=== PATIENT | male | born 1940 | race Caucasian/White ===

== ENCOUNTER 2020-02-23 11:32 | Outpatient (RCR) | payer MEDICARE, SELFPAY ==
[2020-01-26 15:50] LABS: Prothrombin Time 50.8 Seconds (11.1-14.7)
[2020-01-26 16:05] LABS: INR 5.7
[2020-02-11 11:25] LABS: INR 1.1; Prothrombin Time 13.5 Seconds (11.1-14.7)
[2020-02-23 12:22] LABS: Hematocrit 36.5 % (42.0-52.0); Hemoglobin 11.6 g/dL (14.0-18.0); Mean Corpuscular HGB Conc 31.8 g/dl (32-36); Mean Corpuscular Hemoglobin 27.3 pg (26-34); Mean Corpuscular Volume 85.9 fl (80-100); Mean Platelet Volume 9.9 fl (7.4-10.4); Platelet Count Result 244 k/mm3 (150-375); Red Blood Count 4.25 M/mm3 (4.6-6.20); Red Cell Distribution Width 16.5 % (11.5-14.5)
[2020-02-23 12:33] LABS: Add Urine Microscopic? YES; Appearance Urine Clear (Clear); Bilirubin Urine Negative (Negative); Blood Urine Negative (Negative); Color Urine Straw (Yellow); Glucose Urine UA Negative (Negative); Ketones Urine Negative (Negative); Leukocyte Esterase Ur Negative LEU/UL (NEGATIVE); Nitrate Urine Negative (Negative); Protein Urine Negative (Negative); RBC Urine 0-2 /hpf (0-2); Specific Grav Ur 1.011 (1.001-1.035); Squamous Epithelial Cell Urine Occasional /hpf (Few); Urobilinogen Urine Negative mg/dL (<2.0); WBC Urine 0-3 /hpf (0-3)
[2020-02-23 12:39] LABS: Alanine Aminotransferase 17 U/L (4-50); Albumin Level 4.3 g/dL (3.5-5.1); Alkaline Phosphatase 75 U/L (38-126); Anion Gap 11 mmol/L (8-16); Aspartate Amino Transferase 24 U/L (17-59); Bilirubin,Total 0.7 mg/dL (0.2-1.3); Blood Urea Nitrogen 15 mg/dL (9-20); Calcium 9.3 mg/dL (8.4-10.2); Carbon Dioxide 30 mmol/L (22-30); Chloride 101 mmol/L (98-107); Cholesterol 172 mg/dL (0-200); Estimated Glomerular Filt Rate > 60; Glucose 159 mg/dL (75-110); HDL Direct 20 mg/dL; Potassium 4.2 mmol/L (3.4-5.0); Sodium 142 mmol/L (137-145); Triglycerides 220 mg/dL (<150)
[2020-02-23 12:45] LABS: INR 1.7; Prothrombin Time 19.1 Seconds (11.1-14.7)
[2020-02-23 12:49] LABS: LDL Cholesterol Direct 122 mg/dL
[2020-02-23 13:04] LABS: Free T4 Free Thyroxine 0.93 ng/mL (0.78-2.19)
[2020-02-23 13:08] LABS: Prostate Specific Antigen < 0.1 ng/mL (< OR = 4.0)
== END 2020-04-25 23:59 | disposition home or self-care (01) ==
LOC: ANHLAB 11:32
DX: Z51.81 Encounter for therapeutic drug level monitoring (principal); C61 Malignant neoplasm of prostate; I10 Essential (primary) hypertension; E78.5 Hyperlipidemia, unspecified; Z79.01 Long term (current) use of anticoagulants
CPT/HCPCS: 36415; 80053; 80061; 81001; 84153; 84439; 84443; 85027; 85610

== ENCOUNTER 2020-12-29 07:41 | Outpatient (CLI) | payer MEDICARE, SELFPAY ==
--- NOTE | 2021-01-13 12:26 | WPDSLEEPSTUD ---
Sleep Study Date of Study: 12/29/20 Ordering Provider: TAVIA Jones MD Interpreting Physician: Marycarmen Chand MD Sleep Study Type: Polysomnogram Height: 1.75 m Weight: 113.398 kg Body Mass Index: 36.9 Neck Circumference (inches): 16 [place]: 12 Reason for Sleep Study Hypersomnolence * 01/20/2013 - CPAP retitration; BMI 31.1; optimal pressure 16 cm * 07/2015 - split night study; AHI 34.3. Compliance has been 100% with an AHI of 9.1 on September 2018, compliance December 2019 showed AHI 14.1. He might be on APAP 8-18 cm, with high AHI. Sleep History Hakeem Julian is a 80 year old man who has Obstructive sleep apnea and is currently compliant with CPAP. His device is old and needs to be replaced. He has a number of medical problems, and he wakes up frequently at night. He has a history of pulmonary emboli. There is a family history of sleep issues with his middle brother having a diagnosis of sleep apnea. He does not awaken from sleep feeling short of breath. He rarely awakens at night with heartburn, belching or coughing. He occasionally snores and occasionally this is loud enough that others complain about it. He frequently has trouble sleeping with a cold. He does not wake up gasping for breath at night or have breathing problems at night observed by others. He occasionally sweats excessively at night. He does not notice his heart pounding or beating irregularly at night. He frequently falls asleep during the day, occasionally involuntarily, rarely while driving. He does not have loss of muscle tone with strong emotion. He is retired, does not have daytime difficulties due to excessive sleepiness. He does not feel paralyzed on waking or falling asleep. He frequently has vivid dreamlike scenes upon awakening or falling asleep. He does not feel afraid to go to sleep. He constantly has nightmares, constantly remembers his dreams, constantly has racing thoughts. He rarely feels sad or depressed. He does not have anxiety. He occasionally notices parts of his body jerking, occasionally kicks at night, occasionally has crawling aching feelings in the legs and occasionally has leg pain at night. Denies morning jaw pain or grinding teeth during sleep. Rarely is bothered by pain during the day or awakened by pain at night. Occasionally wakes up feeling stiff in the morning with sore or achy muscles, rarely wakes up with pain in neck and spine. Has fatigue, sometimes has panic, sometimes has stomach problems, he has memory problems. Normal bedtime is to 11:30 p.m. or as late as 1:30 a.m., falling asleep within 10 minutes, waking 4-5 times at night to use the bathroom. Sometimes he is able to return to sleep in 5 minute and sometimes it takes hours. He wakes the morning at 8:00 a.m.. His weekend schedule is the same. He estimates getting between 5 and 8 hours of sleep at night. He takes naps in the afternoon. Short nap is not refreshing. He feels better in the evening compared to other times of day. Habits: never smoked, caffeine 2-3 per day, no alcohol. [facility] Past Medical History Medical History (Updated 01/13/21 @ 12:57 by Marycarmen Chand MD) CAD (coronary artery disease) Chronic anticoagulation Diabetes mellitus GERD (gastroesophageal reflux disease) Hyperlipidemia Hypertension Obstructive sleep apnea Prostate cancer Thyroid disease Urinary retention Surgical History Surgical History (Updated 01/13/21 @ 12:57 by Marycarmne Chand MD) History of carpal tunnel release 1998 History of coronary artery bypass graft 2012; 5 vessels History of thyroid surgery 2014 S/P lobectomy of lung left lower lobectomy May 2015 Social History Social History Smoking status: Never smoker Alcohol intake: never Medications Medications: gemfibrozil 600 mg b.i.d. potassium 10 mEq a day Xarelto 20 mg daily Lozol 1.25 mg daily Zetia 10 mg a day Livalo 1 mg a day metformin 500 mg
[2021-01-13 12:35] VITALS: BMI 36.9
== END 2020-12-30 06:43 | disposition home or self-care (01) ==
DX: G47.33 Obstructive sleep apnea (adult) (pediatric) (principal); J30.9 Allergic rhinitis, unspecified; Z68.36 Body mass index [BMI] 36.0-36.9, adult
CPT/HCPCS: 95810

== ENCOUNTER 2024-01-23 10:07 | Outpatient (CLI) | payer MEDICARE, SELFPAY ==
[2024-01-23 11:42] LABS: Basophils Percent Auto 0.6 % (0.2-1.2); Eosinophils Absolute Auto 0.1 K/mm3 (0-0.3); Eosinophils Percent Auto 2.1 % (0-4.4); Hemoglobin 11.6 g/dL (14.0-18.0); Immature Granulocyte Absolute 0.03 K/mm3 (0.00-0.031); Immature Granulocyte Percent A 0.6 % (0-0.5); Lymphocytes Absolute Auto 1.26 K/mm3 (0.9-3.2); Lymphocytes Percent Auto 26.7 % (18.3-44.2); Mean Corpuscular HGB Conc 31.4 g/dl (32-36); Mean Corpuscular Hemoglobin 27.5 pg (26-34); Mean Corpuscular Volume 87.7 fl (80-100); Mean Platelet Volume 9.5 fl (7.4-10.4); Monocytes Absolute Auto 0.4 K/mm3 (0.1-0.6); Monocytes Percent Auto 7.6 % (2.6-8.5); Neutrophils Absolute Auto 2.9 K/mm3 (1.3-6.7); Neutrophils Percent Auto 62.4 % (45.5-73.1); Platelet Count Result 235 k/mm3 (150-375); Red Blood Count 4.22 M/mm3 (4.6-6.20); Red Cell Distribution Width 14.6 % (11.5-14.5); White Blood Count 4.7 K/mm3 (4.5-10.0)
[2024-01-23 11:56] LABS: Alanine Aminotransferase 24 U/L (6-50); Albumin Level 4.7 g/dL (3.5-5.1); Alkaline Phosphatase 61 U/L (38-126); Anion Gap 13 mmol/L (4-12); Aspartate Amino Transferase 35 U/L (17-59); Bilirubin,Total 0.5 mg/dL (0.2-1.3); Blood Urea Nitrogen 15 mg/dL (9-20); Carbon Dioxide 28 mmol/L (22-30); Chloride 98 mmol/L (98-107); Cholesterol 199 mg/dL (0-200); Estimated Glomerular Filt Rate > 60; Glucose 175 mg/dL (65-110); HDL Direct 30 mg/dL; Potassium 3.9 mmol/L (3.4-5.0); Sodium 139 mmol/L (137-145); Triglycerides 152 mg/dL (<150)
[2024-01-23 11:56] LABS: Add Urine Microscopic? YES; Appearance Urine Clear (Clear); Bacteria Urine None Seen /hpf; Bilirubin Urine Negative (Negative); Blood Urine Negative (Negative); Color Urine Yellow (Yellow); Glucose Urine UA Negative (Negative); Ketones Urine Negative (Negative); Leukocyte Esterase Ur 1+ LEU/UL (Negative); Need Manual Microscopic Reviewed; Nitrate Urine Negative (Negative); Non Pathogenic Casts 0-2; Protein Urine Trace mg/dL (Negative); RBC Urine 0-2 /hpf (0-2); Specific Grav Ur 1.012 (1.001-1.035); Squamous Epithelial Cell Urine None Seen /hpf (Few); Urobilinogen Urine 0.2 mg/dL (<2.0); WBC Urine 0-5 /hpf (0-3)
[2024-01-23 11:58] LABS: Creatinine Urine 65.1 mg/dL
[2024-01-23 12:05] LABS: MALB Creatinine Ratio 100.6 mg/g (0-30); Microalbumin Urine Random 65.5 mg/L (0-16.7)
[2024-01-23 12:07] LABS: LDL Cholesterol Direct 143 mg/dL
[2024-01-23 12:11] LABS: Hemoglobin A1C 8.1 % (<5.7)
[2024-01-25 07:53] LABS: Triiodothyronine T3 Free 2.9 pg/mL (2.3-4.2)
== END 2024-01-23 10:08 | disposition home or self-care (01) ==
DX: I10 Essential (primary) hypertension (principal); E11.9 Type 2 diabetes mellitus without complications; E03.9 Hypothyroidism, unspecified
CPT/HCPCS: 36415; 80053; 80061; 81001; 82043; 83036; 84439; 84443; 84481; 85025

== ENCOUNTER 2024-12-01 12:16 | Emergency (ER) | payer MEDICARE, SELFPAY ==
--- NOTE | ~2024-12-01 | XR_ITS ---
EXAM/ PROCEDURE: XR knee RT 3V - 12/01/2024 14:42 CDT HISTORY: 84 years old Male with fall 11/24; red/swollen COMPARISON: None available TECHNIQUE: Three view(s) FINDINGS/ IMPRESSION: There are no fractures or dislocations.Joint space narrowing, subchondral sclerosis, subchondral cyst formation and osteophyte formation, compatible with moderate to severe osteoarthritis. Atherosclerotic calcifications are seen. Reviewed, dictated and finalized at location A.
--- OUTSIDE RECORDS SUMMARY | 2024-12-01 12:19 | XMS_ITS | Data Portability ---
Author Organization [place] - [facility], [facility] - Address [address] [place] [address] Care Team Providers Care Lettuce Trimmer Name Role Phone KAREN PARRA Primary Care Provider Assessment Encounter Date Assessment Date Assessment LastModified by Organization Details LastModified Time 10/20/2024 10/20/2024 Mr. Julian is a 84 year old male with CAD,CABG, HTN, prior hx of PE, DVT, DM, obstructive sleep apnea, dyslipidemia. He comes in today for a general follow up. Patient denies cp, sob, dizziness. Patient has swelling in ble. [email or web address] Not available 10/20/2024 17:48:05 Plan of Treatment Reminders Order Date Submit Date Provider Last Modified By Organization Details Last Modified Time Details Appointments ESTABLISH ED PATIENT 15 2024 10:30A M [facility] Primary [facility] Not available Not available Not available FOLLOW UP 15 2024 02:00P M Calvin Welsh MD Not available Not available Not available Lab None recorded. Referral None recorded. Procedures None recorded. Surgeries None recorded. Imaging None recorded. Medication Orders hydrocodo ne 10 mg-acetam inophen 325 mg tablet 2024 025 [email or web address] [id number], [address] [place], [address], 10/21/2024 19:12:54 pantopraz ole 40 mg tablet,de layed release 2024 025 BAKARI [id number], [address] [place], [address], 10/21/2024 19:12:47 hydrocodo ne 10 mg-acetam inophen [address] [facility] [id number], [address] [place], [address], 09/10/2024 14:39:33 gabapenti n 100 mg capsule 2024 025 [id number] [address] [place], [address], 10/21/2024 18:28:00 warfarin 1 mg tablet 2024 025 [id number] [address] [place], [address], 09/10/2024 14:39:32 warfarin 5 mg tablet 2024 025 [id number] [address] [place], [address], 09/02/2024 19:51:06 Patient TargetsNo targets recorded. Patient Instructions Encounter Date Encounter Id Patient Instructions Last Modified By Organization Details Last Modified Time 09/02/2024 [id number] atrial fibrillation: care instructions Not available 09/02/2024 19:51:01 09/10/2024 [id number] atrial fibrillation: care instructions Not available 09/10/2024 14:27:54 10/01/2024 [id number] atrial fibrillation: care instructions Not available 10/01/2024 12:37:56 10/20/2024 [id number] thoracic aortic aneurysm: care instructions [email or web address] Not available 10/23/2024 10:40:56 Reason for Referral None Reported. Results Created Date Observation Date Name Description Value Unit Range Abnormal Flag Note LastModifiedBy Organization Detail LastModifiedTime 10/02/19 25 09/13/2024 CT, abdom en + pelvi s, w/o contr ast No observ ation record ed. [email or web address] Not Available 2024 14:29:52 10/02/19 25 09/13/2024 XR, chest No observ ation record ed. [email or web address] Not Available 2024 14:32:03 Result Notes None recorded. Problems Name Problem SNOMED Code Status Onset Date Resolution Date Notes Provider Name and Address Organization Details Recorded Time Benign hypertens ion [id number] Rohit Welsh MD [address] [place] [address], [phone] , [facility] [place] 6 14:18:15 Atrial fibrillat ion [id number] Rohit Welsh MD [address] [place] [address], [phone] , [facility] [place] 6 14:18:15 Hyperlipi demia [id number] Rohit Welsh MD [address] [place] [address], [phone] , [facility] [place] 6 14:18:15 Deep vein phlebitis and thromboph lebitis of the leg Rohit Welsh MD [address] [place] [address], [phone] , [facility] [place] 6 19:22:39 Coronary atheroscl erosis [id number] Rohit Welsh MD [address] [place] [address], [address] , [facility] [place] 6 14:18:15 Electroca rdiogram abnormal [id number] Rohit Welsh MD [address] [place] [address], [address] , [facility] [place] 6 19:22:39 Backache 935726775 Active 2019 Backache; Problem descripti on: Back pain conc eptId: [id number] Location : [facility] Last Addressed : 20191130 Secondary : N Practic e ID: 0001 Shoe Salesperson jed: Yes Not Available [facility] 4 10:49:32 Gastroeso phageal reflux disease 270712538 Active 2019 Gastroeso phageal reflux disease; Problem descripti on: GERD conc eptId: [id number] Location : [facility] Last Addressed : 20191130 Secondary : N Practic e ID: 0001 Shoe Salesperson jed: Yes Not Available [facility] 4 10:49:33 Benign prostatic hyperplas ia 107513808 Active 2019 Benign prostatic hyperplas ia; Problem descripti on: BPH - benign prostatic hyperplas ia concep tId: [id number] Location : [facility] Last Addressed : 20191130 Secondary : N Practic e ID: 0001 Shoe Salesperson jed: Yes Not Available [facility] 4 10:49:33 Hypertens elle disorder 92409048 Active 2019 Hypertens elle disorder; Problem descripti on: Hypertens ion adilene ptId: [id number] Location: [facility] Last Addressed : 20191130 Secondary : N Practic e ID: 0001 Shoe Salesperson jed: Yes Not Available [facility] 4 10:49:34 Malignant neoplasm of prostate 929665992 Active 2019 Malignant tumor of prostate; Problem descripti on: Prostate cancer co nceptId: [id number] Location : [facility] Last Addressed : 20191130 Secondary : N Practic e ID: 0001 Shoe Salesperson jed: Yes Not Available [facility] 4 10:49:34 Hypothyro idism 94000872 Active 2019 Hypothyro idism; Problem descripti on: Hypothyro idism con ceptId: [id number] Location: [facility] Last Addressed : 20191130 Secondary : N Practic e ID: 0001 Shoe Salesperson jed: Yes JOSH_Franko [address] [place] [address], [place], [address] , [facility] 5 17:07:24 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 908520463 Active 2019 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; Problem descripti on: Coronary arteriosc lerosis of coronary artery bypass graft con ceptId: [id number] Location : [facility] Last Addressed : 20191130 Secondary : N Practic e ID: 0001 Shoe Salesperson jed: Yes Not Available [facility] 4 10:49:36 Seasonal allergy 052613634 Active 2019 Seasonal allergy; Problem descripti on: Seasonal allergy c onceptId: [id number] Location : [facility] Last Addressed : 20191130 Secondary : N Practic e ID: 0001 Shoe Salesperson jed: Yes Not Available [facility] 4 10:49:36 Melena 9720436 Active 2021 Melena; Problem descripti on: Melena co nceptId: [id number] L ocation: [facility] Pract ice ID: 0001 Shoe Salesperson jed: No Not Available [facility] 4 10:49:34 Diarrhea 44330501 Active 2021 Diarrhea; Problem descripti on: Diarrhea, unspecifi ed type conc eptId: [id number] Location: [facility] Pract ice ID: 0001 Shoe Salesperson jed: No Not Available [facility] 4 10:49:37 Diabetic periphera l neuropath y 282459775 Active 2021 Not Available [facility] 4 10:49:35 Hypokalem ia 92182449 Active 2021 Not Available [facility] 4 10:49:36 Contusion of right wrist 51822665914 990413 Active 2021 Not Available [facility] 4 10:49:32 Contusion of left elbow 97131868583 368255 Active 2021 Not Available [facility] 4 10:49:32 Contusion of rib 120719710 Active 2021 Not Available [facility] 4 10:49:35 Chronic low back pain 574002941 Active 2022 Not Available [facility] 4 10:49:33 Increased frequency of urination 914603042 Active 03/06/ 2023 Not Available [facility] 4 10:49:33 Essential hypertens ion 32141360 Active [address], [address] , [facility] [place] 4 16:04:32 Diabetes mellitus 06651131 Active [address], [address] , [facility] [place] 4 16:05:44 Low back pain 932096363 Active 2023 [facility], [address] , [facility] [place] 4 16:10:34 Cough 12081364 Active 2023 [facility], [address] , [facility] [place] 4 12:39:26 Phimosis 326966689 Active [address], [address] , [facility] [place] 4 12:49:54 Prostate specific antigen above reference range 104664560 Active [address], [address] , [facility] [place] 4 17:05:35 Fatigue 09522609 Active 2024 [facility], [address] , [facility] [place] 5 17:22:58 Right upper quadrant pain 214145181 Active [address], [address] , [facility] [place] 5 18:54:32 Coronary arteriosc lerosis in alutiiq artery 57494744596 07 Active 2024 [facility] [place] 5 17:41:37 Deep venous thrombosi s 369877738 Active 2024 [facility] [place] 5 17:41:37 Aneurysm of thoracic aorta 041985382 Active 2024 [facility] [place] 5 17:41:37 Carotid bruit 647142537 Active 2024 [facility] [place] 5 17:41:37 Mixed hyperlipi demia 163667460 Active 2024 [facility] [place] 5 17:41:37 Cholelith iasis without obstructi on 38979355 Active [address], [address] , [facility] [place] 5 16:32:37 Recurrent bleeding of nose Active [address], [address] , [facility] [place] 5 19:04:33 Functiona l gait abnormali ty 98639469898 103 Active [address], [address] , [facility] [place] 5 19:54:17 Acute abdominal pain 284152807 Active [address], [address] , [facility] [place] 5 12:34:57 Gastroeso phageal reflux disease without esophagit is 747221441 Active [address], [place], [address] , [facility] 14:15:43 Chronic atrial fibrillat ion 806969730 Active [address], [place], [address] , [facility] 5 18:51:45 Problem Notes None recorded. Procedures Surgical History Date Name Laterality Status Provider Name and Address Organization Details Recorded Time 06/13/19 16 Thyroid Surgery completed Rosemarie Jacques [facility] [place] 10/06/2015 17:32:34 08/06/19 13 CABG completed [facility] 08/27/2012 12:51:56 Thyroidectomy completed Not Available [facility] 07/13/2023 10:37:05 Carpal Tunnel Surgery completed Not Available [facility] 07/13/2023 10:37:05 procedure on nose completed Not Available [facility] 07/13/2023 10:37:05 Other completed [facility] 08/27/2012 12:59:53 [facility] 18[facility]:14 Imaging Results None recorded. Procedure Notes None recorded. Medical Equipment None Reported. Allergies Allergen ID Allergen Name Allergen Category Reaction Reaction Severity Criticality Documentation Date Start Date Code Code System Note Provider Name and Address Organization Details Recorded Time iodine medicatio n Not available Not available Not available 07/10/2012 5933 RxNorm Yenni lawson [facility] 3 16:30:04 88853 Product containin g 3-hydroxy -3-methyl glutaryl- coenzyme A reductase inhibitor (product) medicatio n other severe Not available 08/27/2012 12757 009 SNOMED muscl e weakn ess [facility] 3 12:51:56 55345 Substance with sulfonami de structure and antibacte rial mechanism of action (substanc e) medicatio n Not available Not available Not available 07/13/2023 06224 8003 SNOMED [address] [facility] [place] 5 17:02:13 23743 adhesive bandage medicatio n Not available Not available Not available 07/13/2023 18198 [facility]K [facility] [place] 5 17:02:07 Medications Name Sig Start Date Stop Date Status Note LastModified by Organization Details LastModified Time methocarb jamal 500 mg tablet TAKE 1 OR 2 TABLETS BY MOUTH TWICE A DAY NEEDED FOR PAIN 07/15 completed Not Available Not Available Not Available metformin 500 mg tablet take 2 tablet in am and 1 in pm 2023 active Not Available Not Available Not Avai lable potassium chloride ER 10 mEq capsule,e xtended release take 1 capsule by oral route every day with food 11/30 completed Prescrib ed Elsewher e: No Brand Name: ANSELMO Shore CHLORIDE Origina l Start Date: 20191130 Transit ion Into Care: No Modif y By: PAPA Practic e ID: 0001 Enc ounter DateTime : 11/30/19 11:30:00 AM Not Available Not Available Not Available Cardura 8 mg tablet Take 1 tablet every day by oral route. active Not Available Not Available No t Available hydrocodo ne 5 mg-acetam inophen 325 mg tablet TAKE 1 TABLET BY MOUTH EVERY 6 HOURS 07/15 completed Not Available Not Available Not Available warfarin 10 mg tablet TAKE 1 TABLET BY MOUTH EVERY OTHER DAY 2024 active Not Available Not Available Not Avai lable warfarin 7.5 mg tablet Take 1 tablet every day by oral route. 2024 active pt is on Not Available Not Available Not Avai lable lecithin 1,200 mg capsule 10/11 completed Prescrib ed Elsewher e: No Brand Name: LECITHIN Origina l Start Date: 20191130 Transit ion Into Care: No Modif y By: MCCEDRICINS Practic e ID: 0001 Enc ounter DateTime : 11/30/19 11:30:00 AM Not Available Not Available Not Available Lasix 40 mg tablet Take 1 tablet twice a day by oral route. 08/27 completed 08/13 - verbal to [facility] - Not Available Not Available Not Available isosorbid e mononitra te ER 30 mg tablet,ex tended release 24 hr Take 1 tablet every day by oral route. 08/27 completed Not Available Not Available Not Available clobetaso l 0.05 % topical cream APPLY THIN COAT TO AFFECTED AREA TWICE A DAY 2024 active Not Available Not Available Not Avai lable diphenoxy late-atro pine 2.5 mg-0.025 mg tablet take 2 tablet by oral route 4 times every day as needed 11/01 completed Prescrib ed Elsewher e: No Brand Name: DIPHENOX YLATE-AT ROPINE O riginal Start Date: 20211101 Medicat ion Reconcil ed: Yes Doan sition Into Care: No Modif y By: kajal Practice ID: 0001 Enc ounter DateTime : 11/02/19 04:00:00 PM Not Available Not Available Not Available Nexium 40 mg capsule,d elayed release take 1 capsule by oral route every day 10/11 completed Prescrib ed Elsewher e: No Brand Name: NEXIUM O riginal Start Date: 20191130 Transit ion Into Care: No Modif y By: PAPA Shine e ID: 0001 Enc ounter DateTime : 11/30/19 11:30:00 AM Not Available Not Available Not Available Zyrtec 10 mg tablet Take 1 tablet every day by oral route. active Not Available Not Available No t Available metronida zole 500 mg tablet TAKE 1 TABLET BY MOUTH EVERY 12 HOURS FOR 10 DAYS 02/20 completed Not Available Not Available Not Available Plavix 75 mg tablet Take 1 tablet every day by oral route. active verbal - [place], [place] -[place] Not Available Not Available Not Available hydrocodo ne 10 mg-acetam inophen 325 mg tablet Take 1 tablet every 6 hours by oral route as needed. 2024 active Not Available Not Available Not Avai lable Voltaren- XR 100 mg tablet,ex tended release Take 1 tablet every day by oral route. active Not Available Not Available No t Available selenium 200 mcg tablet Take 1 tablet a day. active Not Available Not Available No t Available Nexium 20 mg capsule,d elayed release Take 1 capsule every day by oral route. active Not Available Not Available No t Available FiberCon 625 mg tablet Take 1 tablet as needed 4 times a day active Not Available Not Available No t Available garlic 1,000 mg capsule Take 1 tablet daily active Not Available Not Available No t Available Vitamin D3 10 mcg (400 unit) tablet Take 1 tablet once a day active Not Available Not Available No t Available calcium and magnesium carbonate s 311 mg-232 mg tablet TAKE 2 TABLETS BY ORAL ROUTE NEEDED OR DIRECTED . NOT TO EXCEED 24 TABLETS IN 24HRS active Not Available Not Available No t Available tamsulosi n 0.4 mg capsule take 1 capsule by oral route every day 1/2 hour followin g the same meal each day 2024 active Prescrib ed Elsewher e: No Brand Name: TAMSULOS IN HCL Orig inal Start Date: 20191130 Transit ion Into Care: No Modif y By: PAPA Shine e ID: 0001 Enc ounter DateTime : 11/30/19 11:30:00 AM Not Available Not Available Not Available trazodone 100 mg tablet TAKE 1 TABLET BY MOUTH EVERY DAY AFTER MEALS 02/20 completed Not Available Not Available Not Available gemfibroz il 600 mg tablet take 1 tablet by oral route 2 times every day 30 minutes before morning and evening meal 2023 active Not Available Not Available Not Avai lable Lasix 20 mg tablet take 1 tablet by oral route every day 10/11 completed Prescrib ed Elsewher e: No Brand Name: LASIX Or iginal Start Date: 20191130 Transit ion Into Care: No Modif y By: PAPA Practic e ID: 0001 Enc ounter DateTime : 11/30/19 11:30:00 AM Not Available Not Available Not Available pantopraz ole 40 mg tablet,de layed release Take 1 tablet twice a day by oral route. 2024 active Not Available Not Available Not Avai lable warfarin 5 mg tablet take 1 tablet daily 2024 active Not Available Not Available Not Avai lable indapamid e 1.25 mg tablet take 1 tablet by oral route every day in the morning 2023 active Not Available Not Available Not Avai lable niacin 100 mg tablet take 1 tablet by oral route 2 times every day with meals 10/11 completed Prescrib ed Rodrigue e: No Brand Name: NIACIN Diana mejia Start Date: 20191130 Transit ion Into Care: No Modif y By: PAPA Shine e ID: 0001 Enc ourhonda DateTime : 11/30/19 11:30:00 AM Not Available Not Available Not Available Synthroid 50 mcg tablet TAKE 1 TABLET DAILY 07/15 completed Not Available Not Available Not Available gabapenti n 300 mg capsule Take 1 capsule 3 times a day by oral route. 11/01 completed Not Available Not Available Not Available diclofena c sodium 75 mg tablet,de layed release Take 1 tablet twice a day by oral route. active Not Available Not Available No t Available felodipin e ER 10 mg tablet,ex tended release 24 hr Take 1 tablet every day by oral route. 08/27 completed Not Available Not Available Not Available monteluka st 10 mg tablet take 1 tablet by oral route every day in the evening active Not Available Not Available No t Available magnesium 250 mg tablet Take 1 tablet with a meal once a day active Not Available Not Available No t Available gabapenti n 100 mg capsule Take 1 capsule 3 times a day by oral route. 2024 active pt is not taking Not Available Not Available Not Available nystatin 100,000 unit/gram topical powder APPLY TO THE AFFECTED AREA(S) BY TOPICAL ROUTE 2 TIMES PER DAY 2024 active Not Available Not Available Not Avai lable dexametha sone sodium phosphate 4 mg/mL injection solution Inject 2 mL twice a day by intramus cular route. 08/06 completed Not Available Not Available Not Available warfarin 1 mg tablet TAKE ONE TAB PO DAILY 2024 active Not Available Not Available Not Avai lable fluticaso ne propionat e 50 mcg/actua tion nasal spray,nurys pension [place] 1 spray every day by intranas al route. active Not Available Not Available No t Available finasteri de 5 mg tablet Take 1 tablet every day by oral route. 09/17 completed Not Available Not Available Not Available Adult Low Dose Aspirin 81 mg tablet,de layed release Take 1 tablet every day by oral route. active Not Available Not Available No t Available Zetia 10 mg tablet take 1 tablet by oral route every day 2023 active Not Available Not Available Not Avai lable Avodart 0.5 mg capsule Take 1 capsule every day by oral route. active Not Available Not Available No t Available Klor-Con M20 mEq tablet,ex tended release Take 1 tablet every day by oral route. 2023 active Not Available Not Available Not Avai lable potassium chloride ER 10 mEq tablet,ex tended release(p art/cryst ) Take 1 tablet every day by oral route. 10/05 completed Not Available Not Available Not Available metoprolo l tartrate 25 mg tablet TAKE 1 TABLET TWICE A DAY 2024 active Not Available Not Available Not Avai lable Cymbalta 30 mg capsule,d elayed release Take 1 capsule every day by oral route. active Not Available Not Available No t Available prednison e 60 mg QTY:2 08/27 completed TAKE 1 TABLET EVERY DAY BY ORAL ROUTE Not Available Not Available Not Available [place] 3 Fish Oil 1000mg PO QD active Not Available Not Available No t Available Lupron Depot (4 month) 04/01 completed Not Available Not Available Not Available Niacin Flush Free 500 mg Capsule. Take 1 capsule a day 08/27 completed Not Available Not Available Not Available red yeast rice 600 mg capsule Take 1 Capsule once daily active Not Available Not Available No t Available Lovaza 1 gram capsule Take 2 capsules twice a day by oral route. active Not Available Not Available No t Available Biotin Plus-Calc ium and Vit D3 1000 mg Take 1 tablet daily active Not Available Not Available No t Available aspirin 81 mg effervesc ent tablet Take 1 tablet every day by oral route. 10/12 completed Not Available Not Available Not Available Toviaz 4 mg tablet,ex tended release take 1 tablet by oral route every day 10/11 completed Prescrib ed Elsewher e: No Brand Name: TOVIAZ Diana mejia Start Date: 20191130 Transit ion Into Care: No Modif y By: PAPA Shine e ID: 0001 Enc [email or web address] DateTime : 11/30/19 11:30:00 AM Not Available Not Available Not Available Toviaz 8 mg tablet,ex tended release Take 1 tablet every day by oral route. 03/31 completed Not Available Not Available Not Available Zyrtec 10 mg capsule Take 1 capsule every day by oral route. 03/20 completed Not Available Not Available Not Available levothyro xine 25 mcg capsule Take 1 capsule every day by oral route. 04/01 completed Not Available Not Available Not Available levothyro xine 50 mcg capsule Take 1 capsule( s) every day by oral route. 2024 active Not Available Not Available Not Avai lable Livalo 1 mg tablet Take 1 tablet every day by oral route. 09/17 completed Not Available Not Available Not Available Livalo 2 mg tablet Take 1 tablet every day by oral route. 10/13 completed unsure of Not Available Not Available Not Available Xarelto unsure of dose 10/05 completed Not Available Not Available Not Available Xarelto 20 mg tablet take 1 tablet by oral route every day with the evening meal 10/20 completed Not Available Not Available Not Available Myrbetriq 25 mg tablet,ex tended release Take 1 tablet every day by oral route. 04/18 completed Not Available Not Available Not Available Myrbetriq 50 mg tablet,ex tended release Take 1 tablet every day by oral route. 03/31 completed Not Available Not Available Not Available Eliquis 5 mg tablet Take 1 tablet twice a day by oral route. 10/12 completed unsure of Not Available Not Available Not Available potassium chloride ER 20 mEq tablet,ex tended release one tab po daily 2024 active Not Available Not Available Not Avai lable Imodium A-D 2 mg capsule take 2 capsule by oral route after 1st loose stool, followed by 1 capsule after each subseque nt loose stool not to exceed 16 mg/day 2021 active Not Available Not Available Not Avai lable Xhance 93 mcg/actua tion breath activated aerosol [place] 1 spray twice a day by intranas al route. 02/09 completed Not Available Not Available Not Available Nucala 100 mg/mL subcutane ous syringe Inject 1 mL every 4 weeks by subcutan eous route. active Not Available Not Available No t Available aspirin 81 mg capsule Take 1 capsule every day by oral route at bedtime. 2021 active Not Available Not Available Not Avai lable Vitals Date Recorded Body height Respiratory rate Body mass index (BMI) Body weight Heart rate Oxygen saturation Oxygen saturation in Arterial blood by Pulse oximetry Systolic And Diastolic Provider Name and Address Organization Details Last Updated DateTime 5 175.26 cm 16 /min 36.2 kg/m2 169150. 13 g 76 /min 98 % 98 % 130/76 mm[Hg] Christelle Hardy [facility] [place] 5 19:34:50 Date Recorded Body height Respiratory rate Body mass index (BMI) Body weight Oxygen saturation Oxygen saturation in Arterial blood by Pulse oximetry Heart rate Systolic And Diastolic Provider Name and Address Organization Details Last Updated DateTime 5 175.26 cm 16 /min 36.2 kg/m2 282718. 13 g 98 % 98 % 63 /min 122/74 mm[Hg] Christelle Hardy [facility] [place] 5 14:20:10 Date Recorded Body height Respiratory rate Body mass index (BMI) Body weight Heart rate Oxygen saturation Oxygen saturation in Arterial blood by Pulse oximetry Systolic And Diastolic Provider Name and Address Organization Details Last Updated DateTime 5 175.26 cm 16 /min 35.4 kg/m2 950260. 17 g 68 /min 98 % 98 % 132/78 mm[Hg] Christelle Hardy [facility] [place] 5 12:06:53 Date Recorded Body height Respiratory rate Body mass index (BMI) Body weight Oxygen saturation Oxygen saturation in Arterial blood by Pulse oximetry Heart rate Systolic And Diastolic Provider Name and Address Organization Details Last Updated DateTime 5 175.26 cm 16 /min 35.1 kg/m2 680766. 55 g 96 % 96 % 70 /min 126/72 mm[Hg] Kristin Berry [facility] [place] 5 17:45:30 Date Recorded Body height Respiratory rate Heart rate Oxygen saturation Oxygen saturation in Arterial blood by Pulse oximetry Body mass index (BMI) Body weight Systolic And Diastolic Provider Name and Address Organization Details Last Updated DateTime 5 175.26 cm 16 /min 74 /min 96 % 96 % 35.3 kg/m2 199319. 58 g 126/76 mm[Hg] Chasity Aldana [facility] [place] 18:30:47 Social History Question Answer Notes LastModified by Organizat ion Details LastModified Time Tobacco Smoking Status Never Smoker Not Available [employer] 03/08/2020 03:20:52 Do You Have An Advance Directive? Yes [id number] Information not available 03/08/2020 Are You Blind Or Do You Have Difficulty Seeing? No [id number] Information not available 03/08/2020 What Is Your Level Of Caffeine Consumption? Occasional [id number] Information not available 07/13/2023 Are You Deaf Or Do You Have Serious Difficulty Hearing? No [id number] Information not available 03/08/2020 Diabetes No Information no t available 08/27/2012 What Type Of Diet Are You Following? REGULAR [id number] Information not available 03/08/2020 Which Illicit Or Recreational Drugs Have You Used? Denies. [id number] Information not available 03/08/2020 Family History Of Heart Disease? Yes Information not available 08/27/2012 High Blood Pressure Yes Information not available 08/27/2012 High Cholesterol Yes Informat ion not available 08/27/2012 Do You Have Difficulty Bathing Yourself Without Assistance? No [email or web address] Information not available 05/18/2024 Are You Able To Eat And Drink Without Assistance? Yes [email or web address] Information not available 05/18/2024 Is It Difficult To Get Yourself Up And Out Of Bed Or A Chair? No [email or web address] Information not available 05/18/2024 Do You Feel Unsteady When Standing Or Walking? No [email or web address] Information not available 08/17/2024 Are You Worried About Falling? No Information not available 08/17/2024 Have You Had Any Falls In The Past Year? No [email or web address] Information not available 08/17/2024 Where You Injured? No [email or web address] Information not available 08/17/2024 Marital Status Informatio n not available 08/27/2012 Do You Have A Medical Power Of Information Support Project Manager? Yes [email or web address] Information not available 05/18/2024 What Was The Date Of Your Most Recent Tobacco Screening? 08/17/2024 [email or web address] Information not available 08/17/2024 Obese Yes Information no t available 08/27/2012 Overweight Yes Information no t available 08/27/2012 What Is Your Relationship Status? [id number] Information not available 07/13/2023 Do You Use Your Seat Belt Or Car Seat Routinely? Yes [id number] Information not available 07/13/2023 How Much Tobacco Do You Smoke? No [id number] Information not available 03/08/2020 General Stress Level Medium Information not available 08/27/2012 Do You Use Sunscreen Routinely? Yes [email or web address] Information not available 05/18/2024 Has Tobacco Cessation Counseling Been Provided? No [email or web address] Information not available 03/26/2024 Have You Recently Traveled Abroad? No [id number] Information not available 07/13/2023 Do You Have Difficulty Walking Or Climbing Stairs? No [id number] Information not available 03/08/2020 Sex: Unknown Functional Status Question Answer Note LastModified by Organizat ion Details LastModified Time Do you or have you ever used any other forms of tobacco or nicotine? No [email or web address] Information not available 03/26/2024 What is your level of alcohol consumption? None [id number] Information not available 03/08/2020 Do you have transportation difficulties? No Information not available 05/18/2024 Are you able to walk? YESWOREST [id number] Information not available 07/13/2023 Do you have difficulty doing errands alone? No [id number] Information not available 03/08/2020 Are you able to care for yourself? Yes [id number] Information not available 07/13/2023 What is your occupation? Retired [id number] Information not available 03/08/2020 Do you have difficulty dressing or bathing? No [id number] Information not available 03/08/2020 What is your exercise level? Moderate 4 walks daily, physical therapy exercises [id number] Information not available 03/08/2020 Mental Status Question Answer Note LastModified by Organizat ion Details LastModified Time Do you feel stressed (tense, restless, nervous, or anxious, or unable to sleep at night)? [id number] Information not available 07/13/2023 Do you have difficulty concentrating, remembering or making decisions? Yes [id number] Information no t available 03/08/2020 Family History Relationship Description Onset Age of this Age Resolved Age Notes LastModified by Organization Details LastModified Time Father Myocardial infarction 58 [email or web address] Not available 10/06 19:22:51 Medical History Condition Response Coronary Artery Disease Y Hyperthyroidism N CVA/TIA (Stroke) N Neurologic Disorder (Parkinson's, tremor , MS) N Hypothyroidism Y COPD N Depression/Anxiety N Pacemaker N Peripheral Arterial Disease N Anemia N Constipation N Genitourinary Disease N Heart Attack ([place]) N Gastrointestinal Disease N Deep Vein Thrombosis Y Diabetes Y Cardiomyopathy N Obesity N Arthritis Y Antiplatelet/Anticoagulant Therapy N Congestive Heart Failure (CHF) N Hyperlipidemia Y Cancer Y Asthma N Aortic Aneurysm N Hepatitis N Liver Disease N Valvular Abnormalities N Arrhythmia N Hypertension Y Kidney Disease N Hematologic Disease N Immunizations Vaccine Type Date Status Note Provider Nam e and Address Organization Details Recorded Time Influenza, adjuvanted, quadrivalent, PF 3 completed Not Available [facility] 07/13/2023 10:54:37 Tdap 2 completed Not Available [facility] 07/13/2023 10:54:38 zoster recombinant 2 completed Not Available [facility] 07/13/2023 10:54:38 Past Encounters Encounter ID Performer Location Encounter Start Date Encounter Closed Date Diagnosis/Indication Diagnosis SNOMED-CT Code Diagnosis ICD10 Code Diagnosis Note [id number] Calvin Welsh MD OFFICE - [place] [address] [facility] [address] 08/27/2012 12:44:04 08/27/2012 16:23:15 [id number] Calvin Welsh MD [place] [place] [address] [facility] [address] 03/09/2013 13:08:00 03/09/2013 17:38:06 [id number] Calvin Welsh MD OFFICE - [place] [facility]) [address] 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 He is having a procedure on 03/07, he will be stopping Coumadin 03/03. Hyperlipidemia 99216867 continue Statin. Encouraged physical activity and diet. Coronary atherosclerosis 162291654 stable, doing well. Encouraged diet and exercise. Reviewed [place] EKG showed [place] [id number] MD ROMIE Shaw - [place] [facility]) [address] [place] [address] 08/12/2014 13:51:50 08/12/2014 19:56:37 Benign hypertension 31315864 BP is good controlled on current medication , no changes in meds Atrial fibrillation 33049947 On anticoagul ation for stroke prevention . Will give standing order for INR. Hyperlipidemia 67118181 continue Statin. Encouraged physical activity and diet. Coronary atherosclerosis 987304239 stable, continue medical therapy. Encouraged diet and exercise. [id number] MD ROMIE Shaw - [place] [facility]) [address] [place] [address] 03/10/2015 12:39:46 03/12/2015 16:36:20 Benign hypertension 73915457 I10 BP is good controlled on current medication , no changes in meds Atrial fibrillation 4943 6004 I48.0 stable, On anticoagul ation for stroke prevention . Hyperlipidemia 07006238 E78.2 continue Statin. Encouraged physical activity and diet. Get lipid panel, it was done recently. Coronary atherosclerosis 421735274 I25.10 stable, continue medical therapy. Encouraged diet and exercise. doing good cardiac robbins. Continue medication for now. [id number] Calvin Welsh MD OFFICE - [place] ([facility]) [address] [place] [address] 10/06/2015 16:58:05 10/13/2015 14:18:28 Benign hypertension 13588661 I10 BP is good controlled on current medication , no changes in meds Atrial fibrillation 4943 6004 I48.0 stable, On anticoagul ation for stroke prevention . Rate controlled . Hyperlipidemia 07333793 E78.2 continue Statin. Encouraged physical activity and diet. Coronary atherosclerosis 743766757 I25.10 stable, continue medical therapy. Encouraged diet and exercise. doing good cardiac robbins. No symptoms for now. [id number] Calvin Welsh MD OFFICE - [place] ([facility]) [address] [place] [address] 04/19/2016 12:04:25 04/20/2016 00:21:20 Benign hypertension 23093404 I10 BP is good controlled on current medication , no changes in meds Coronary atherosclerosis 372788560 I25.10 stable, continue medical therapy. Encouraged diet and exercise. Hyperlipidemia 01654895 E78.2 continue Statin. Encouraged physical activity and diet. Atrial fibrillation 4943 6004 I48.0 stable, On anticoagul ation for stroke prevention . Rate controlled . Discussed option of Xarelto or Pradaxa, wants to think about it. [id number] Calvin Welsh MD OFFICE - [place] ([facility]) [address] [place] [address] 11/01/2016 16:21:45 11/02/2016 18:03:26 Benign hypertension 51565354 I10 BP is good controlled on current medication , no changes in meds Coronary atherosclerosis 328859157 I25.10 stable, continue medical therapy. Encouraged diet and exercise. Atrial fibrillation 4943 6004 I48.0 rate controlled , on anticoagua ltion for stroke prevention Hyperlipidemia 07580732 E78.2 continue Statin. Encouraged physical activity and diet. [id number] Calvin Welsh MD OFFICE - [place] ([facility]) [address] [place] [address] 04/18/2017 16:45:48 04/19/2017 19:59:54 Benign hypertension 42234786 I10 BP is good controlled on current medication , no changes in meds. Pt doing good cardiac robbins. No change in medication . Coronary atherosclerosis 931752944 I25.10 stable, continue medical therapy. Encouraged diet and exercise. Atrial fibrillation 4943 6004 I48.91 rate controlled , on anticoagua ltion for stroke prevention Hyperlipidemia 06433012 E78.2 continue Statin. Encouraged physical activity and diet. [id number] Calvin Welsh MD OFFICE - [place] [address] [facility] [address] [address] [place] [address] 09/17/2017 18:00:55 09/21/2017 23:31:11 Benign hypertension 39572089 I10 BP is good controlled on current medication , no changes in meds. Doing good cardiac robbins. Atrial fibrillation 4943 6004 I48.91 reviewed the ekg, showed SR. Coronary atherosclerosis 362649945 I25.10 stable, continue medical therapy. Encouraged diet and exercise. Hyperlipidemia 12154565 E78.2 continue Statin. Encouraged physical activity and diet. [id number] Calvin Welsh MD OFFICE - [place] ([facility]) [address] [address] 03/20/2018 16:13:00 03/21/2018 22:49:31 Paroxysmal atrial fibrillation 688415846 I48.0 rate controlled , on anticoagua ltion for stroke prevention . Coronary arteriosclerosis in alutiiq artery 6311086882 107 I25.10 stable, continue medical therapy Mixed hyperlipidemia 267 684082 E78.2 continue medical therapy Benign hypertension 1072 5009 I10 BP is good controlled on current medication , no changes in meds. [id number] Calvin Welsh MD OFFICE - [place] [address] [facility] [address] [facility] [address] [place] [address] 09/17/2018 16:03:46 09/18/2018 23:09:31 Coronary arteriosclerosis in alutiiq artery 8646148954 107 I25.10 stable, reviewed the ekg, showed SR. Pt doing good, very active, lost 5 pounds Paroxysmal atrial fibrillation 185628490 I48.0 reviewed the ekg, showed SR. On anticoaugl ation for stroke prevention . Mixed hyperlipidemia 267 245456 E78.2 continue medical therapy Benign hypertension 1072 5009 I10 BP is good controlled on current medication , no changes in meds. [id number] Calvin Welsh MD OFFICE - [place] [address] [address] [place] [address] 04/01/2019 17:55:42 04/03/2019 17:54:32 Paroxysmal atrial fibrillation 926051821 I48.0 On anticoagul ation for stroke prevention . Rate controlled Coronary arteriosclerosis in alutiiq artery 5845764365 107 I25.10 stable, offers no new complaints , encourage more excersie. Benign hypertension 1072 5009 I10 BP is good controlled , no changes in medication s Mixed hyperlipidemia 267 492521 E78.2 continue medical therapy, encourgae healthy diet [id number] Calvin Welsh MD OFFICE - [place] ([facility]) [address] [place] [address] 10/08/2019 15:33:54 10/09/2019 18:31:48 Atrial fibrillation 14094614 I48.0 Rate controlled , on full medical therapy. Coronary arteriosclerosis in alutiiq artery 2898045435 107 I25.10 stable, continue medical therapy Benign hypertension 1072 5009 I10 BP is good controlled , no changes in medication s Mixed hyperlipidemia 267 712998 E78.2 continue medical therapy, encourage healthy diet, exercise and diet as well. [id number] Calvin Welsh MD OFFICE - [place] ([facility]) [address] [place] [address] 03/31/2020 15:01:49 09/19/2020 03:48:26 Atrial fibrillation 21716322 I48.0 currently on anticoagul ation for stroke prevention rate controlled heart regular today per auscultati on Coronary arteriosclerosis in alutiiq artery 4758894416 107 I25.10 patient offers no cardiac complaints continue current therapy Benign hypertension 1072 5009 I10 no changes in medication blood pressure well controlled Mixed hyperlipidemia 267 489087 E78.2 stable encourage weight loss [id number] MD ROMIE URBINA - [place] [facility]) [address] [place] [address] 10/12/2020 13:40:09 10/19/2020 13:03:49 Atrial fibrillation 42052716 I48.0 Asymptomat ic. Regular rhythm on exam - On xarelto. Tolerating well. No bleeding noted - On metoprolol for rate control Coronary arteriosclerosis in alutiiq artery 4903556189 107 I25.10 s/p CABG Asymptomat ic I reviewed EKG which shows NSR HR 64 - Continue medical therapy - Obtain outside lipids and LFTs - Obtain outside TTE. [facility] his cardiologi st Dr. Welsh in 2 months Benign hypertension 1072 5009 I10 Controlled -Continue medical therapy Mixed hyperlipidemia 267 130811 E78.2 - Obtain outside Lipids and LFTs. He states that his primary care provider recently started him on livalo and he had recent lipid panel and LFTs done. Deep venou s thrombosis 735626718 I82.409 Hx of DVT in lower extremity. Asymptomat ic. - On xarelto. No recurrence s since. [id number] Calvin Welsh MD OFFICE - [place] ([facility]) [address] [place] [address] 11/24/2020 17:02:12 11/29/2020 12:06:47 Atrial fibrillation 34692747 I48.0 rate is controlled no changes in medication s, currently on anticoagul ation for stroke prevention Coronary arteriosclerosis in alutiiq artery 8702818143 107 I25.10 stable patient offers no cardiac complaints will continue current medical therapy EKG reviewed showed mild AR and mild MR EF 57% repeat echo in 1 year Benign hypertension 1072 5009 I10 no changes in her medication blood pressure is well controlled Mixed hyperlipidemia 267 769360 E78.2 labs reviewed continue current medical therapy Deep venou s thrombosis 702552626 I82.409 asymptomat ic continue anticoagul ation Carotid bruit 021614366 R09.89 slight carotid bruit heard to the left carotid artery will do ultrasound prior to next visit for further evaluation [id number] Calvin Welsh MD OFFICE - [place] ([facility]) [address] [place] [address] 04/27/2021 18:04:21 05/23/2021 16:01:19 Atrial fibrillation 83458313 I48.0 rate is controlled no changes in medication s, currently on anticoagul ation for stroke prevention Coronary arteriosclerosis in alutiiq artery 6383522986 107 I25.10 stable patient offers no cardiac complaints will continue current medical therapy EKG reviewed showed mild AR and mild MR EF 57% repeat echo in 1 year Benign hypertension 1072 5009 I10 no changes in her medication blood pressure is well controlled Mixed hyperlipidemia 267 367509 E78.2 labs reviewed continue current medical therapy Deep venou s thrombosis 935995185 I82.409 asymptomat ic continue anticoagul ation Carotid bruit 164595865 R09.89 ultrasound was reviewed mild disease at the same time there was the nodule on the thyroid referred for ENT evaluation [id number] Calvin Welsh MD OFFICE - [place] ([facility]) [address] [place] [address] 10/05/2021 16:33:49 10/16/2021 16:35:28 Atrial fibrillation 08589883 I48.0 continue anticoagul ation for stroke prevention rate is controlled Coronary arteriosclerosis in alutiiq artery 5506359343 107 I25.10 stable patient denies any symptoms at today's visit we will continue current medical therapy Benign hypertension 1072 5009 I10 no changes in her medication blood pressure is well controlled Carotid bruit 733957447 R09.89 minimal stenosis was noted repeat ultrasound 1 year Mixed hyperlipidemia 267 962486 E78.2 currently on statin Deep venou s thrombosis 858395122 I82.409 continues to be on anticoagul ation Aneurysm o f thoracic aorta 726144111 I71.2 4.2 cm on last echocardio gram repeat prior to next visit for evaluation [id number] Calvin Welsh MD OFFICE - [place] ([facility]) [address] [place] [address] 03/22/2022 14:34:44 04/02/2022 15:55:19 Atrial fibrillation 39060938 I48.0 The patients' [id number] score is 6. Continue the patient on metoprolol for rate control and xeralto for stroke prevention . Coronary arteriosclerosis in alutiiq artery 1477614364 107 I25.10 The patient denies taking aspirin. Will add aspirins. The patient reports that he feels really good and denies symptoms. Aneurysm o f thoracic aorta 866593427 4.2 cm on last echocardio gram repeat prior to next visit for evaluation Benign hypertension 1072 5009 I10 Today's blood pressure is 124/64. He states that his blood pressure is well controlled at home. Will continue current medication s. Carotid bruit 859025887 R09.89 minimal stenosis was noted on previous carotid US. No further testing required unless the patient reports symptoms. Mixed hyperlipidemia 267 913199 E78.2 currently on statin. Advised the patient to follow healthy diet and exercise regurarly. Deep venou s thrombosis 056042850 I82.409 The patient reports no symptoms. We'll continue the patient on current medication s. [id number] HAKEEM MCHUGH NP OFFICE - [place] ([facility]) [address] [place] [address] 09/17/2022 14:38:43 09/21/2022 17:55:06 Atrial fibrillation 69792641 I48.0 rate is controlled continue anticoagul ation for stroke prevention Coronary arteriosclerosis in alutiiq artery 5375407128 107 I25.10 stable continue current medical therapy Aneurysm o f thoracic aorta 532484693 I71.20 repeat echo prior to next visit for evaluation Benign hypertension 1072 5009 I10 blood pressure well controlled no change in current medical therapy Carotid bruit 544416388 R09.89 order follow-up ultrasound next visit for evaluation Mixed hyperlipidemia 267 921835 E78.2 continue statin encouraged weight loss Deep venou s thrombosis 405313934 I82.409 no further symptoms reported by patient he does have swelling to lower extremitie s this is not new he does wear compressio n socks daily [id number] HAKEEM MCHUGH NP OFFICE - [place] ([facility]) [address] [place] [address] 03/18/2023 11:57:43 03/18/2023 12:25:25 Atrial fibrillation 13229845 I48.0 Continue anticoagul ation for stroke prevention . Rate is controlled today's visit patient offers no cardiac complaints . Coronary arteriosclerosis in alutiiq artery 9648450002 107 I25.10 Continue current medical therapy patient offers no cardiac complaints at today's visit. Aneurysm o f thoracic aorta 344258501 I71.20 4.3 cm on recent echocardio gram repeat in 1 year for re-evaluat ion. Benign hypertension 1072 5009 I10 No changes in medical therapy blood pressure controlled . Carotid bruit 861863620 R09.89 Will order follow-up ultrasound prior to next visit for re-evaluat ion. Mixed hyperlipidemia 267 439705 E78.2 Stable, continue statin. Deep venou s thrombosis 619144823 I82.409 Advised to continue wearing compressio n socks. [id number] [facility] [address] [place] [address] 05/30/2023 15:17:56 05/30/2023 16:16:50 Essential hypertension 33625423 I10 cont to monitor bp at homelow salt and caffeineco nt medication labs in 3-6 mos Hyperlipidemia 01617770 E78.5 discussed diet and exerciseco nt current medication labs in 3-6 mos Diabetes mellitus 756820 09 E11.9 A1c 7.1 [id number] [facility] [address] [place] [address] 02/20/2022 00:00:00 02/20/2022 14:09:27 [id number] [facility] [address] [place] [address] 04/24/2022 00:00:00 04/24/2022 15:53:40 [id number] [facility] [address] [place] [address] 05/29/2022 00:00:00 05/29/2022 15:33:30 [id number] JONATHON HARRINGTON [facility] [address] [place] [address] 07/16/2022 00:00:00 07/16/2022 13:19:48 [id number] [facility] [address] [place] [address] 08/13/2022 00:00:00 08/13/2022 18:44:28 [id number] [facility] [address] [place] [address] 11/01/2022 00:00:00 11/01/2022 17:20:06 [id number] [facility] [address] [place] [address] 02/20/2023 00:00:00 02/20/2023 15:09:11 [id number] [facility] [address] [place] [address] 07/16/2023 12:12:56 07/16/2023 13:12:52 Cough 05944900 R05.9 DDx allergic rhinitis.w ill do cxr if worsencont otc medication swill give decadron 8mg im now. Phimosis 443195016 N47.1 will use clobetasol cream bidkeep area clean and dry. [id number] [facility] [address] [place] [address] 08/07/2023 16:30:02 08/07/2023 17:44:27 Benign hypertension 53227471 I10 cont to monitor bp at homelow salt and caffeineco nt medication labs in 3-6 mos Hyperlipidemia 10376792 E78.5 discussed diet and exerciseco nt current medication labs in 3-6 mos Hypokalemia 50272876 E87 .6 medication refilled. Diabetes mellitus 939105 09 E11.9 A1c 7.1 Hypothyroidism 65680522 E03.9 will do labs. Low back pain 818459375 M54.50 refill norco 10/325mg qid #20 Benign pro static hyperplasia 573485103 N40.0 medication refilled today [id number] [facility] [address] [place] [address] 02/03/2024 16:02:29 02/03/2024 16:53:18 Low back pain 808696813 M54.50 refill norco 10/325mg qid #20 [id number] [facility] [address] [place] [address] 02/10/2024 15:40:44 02/10/2024 17:14:30 Low back pain 188294376 M54.50 refill norco 10/325mg bid #60 [id number] [facility] [address] [place] [address] 05/20/2024 13:02:30 05/20/2024 14:11:00 Hypothyroidism 17841020 E03.9 will do labs. Benign hypertension 1072 5009 I10 cont to monitor bp at homelow salt and caffeineco nt medication labs in 3-6 mos Hyperlipidemia 49518591 E78.5 discussed diet and exerciseco nt current medication labs in 3-6 mos Prostate s pecific antigen above reference range 905187071 R97.20 Diabetic p eripheral neuropathy 394651129 E11.40 Physical examination 588 0005 Z00.00 exam completed today [id number] SU MARTINEZ [facility]C [facility] [address] [place] [address] 03/26/2024 14:17:12 03/26/2024 15:21:53 Essential hypertension 75845134 I10 Patient encouraged to monitor blood pressure readings at home.Call the office if readings are consistent ly >140/90.Co ntinue current medication s.Seek ER if any alarming symptoms arise. 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 [id number] [facility] [address] [place] [address] 04/29/2024 12:49:42 04/29/2024 14:24:21 Low back pain 072653080 M54.50 refill norco 10/325mg bid #60 [id number] [facility] [address] [place] [address] 06/10/2024 16:59:08 06/10/2024 17:37:02 Fatigue 55227130 R53.83 will order labsER if wosen. [id number] [facility] [address] [place] [address] 06/29/2024 15:41:54 06/29/2024 17:08:35 Renewal of prescription 735411728 Z76.0 Low back pain 138567181 M54.50 refill norco 10/325mg bid #60mua in chartpmp monitored. [id number] [facility] [address] [place] [address] 07/15/2024 16:00:42 07/15/2024 17:29:57 Hypothyroidism 49968844 E03.9 medication refill Benign pro static hyperplasia 920876800 N40.0 medication refilled today [id number] Calvin Welsh MD OFFICE - [place] [address] [place] [address] 07/20/2024 17:06:34 07/20/2024 18:02:04 Atrial fibrillation 27663954 I48.0 c/o sobOn anticoagul ation for stroke prevention . Rate is controlled today and is at 73, on metoprolol CHADVASC: 4, has bled 2, stroke risk 4% Coronary arteriosclerosis in alutiiq artery 7520331824 107 I25.10 c/o exertional elis/o CAGBReview ed EKG today: NSR and non specific ST changeson GDMTwill do stress test Aneurysm o f thoracic aorta 459417469 I71.20 4.3 cm on previous echo 02/2023wil l repeat echo Benign hypertension 1072 5009 I10 blood pressure today was 138/82, report normal BP at home.The patient was advised to maintain a healthy diet low in salt, exercise as tolerated and to keep a home blood pressure log. will continue current medical therapy and re-evaluat e next visit. Carotid bruit 301948566 R09.89 Reviewed CDUS 03/2021 reviewed: Mild disease BLwill repeat CDUS every two to three years Mixed hyperlipidemia 267 647477 E78.2 Stable, continue statin. Deep venou s thrombosis 590758617 I82.409 Advised to continue wearing compressio n socks. [id number] [facility] [address] [place] [address] 08/11/2024 15:57:16 08/11/2024 16:38:14 Phimosis 710209647 N47.1 will use clobetasol cream bidkeep area clean and dry. Low back pain 950809220 M54.50 refill norco 10/325mg bid #60mua in chartpmp monitored. Cholelithi asis without obstruction 35330577 K80.[address] Westbrook if any difficulti es.ultraso und reviewed. [id number] [facility] [address] [place] [address] 08/17/2024 18:20:09 08/17/2024 20:03:11 Recurrent bleeding of nose 3084222450 102 R04.0 will follow up with Dr Geoff smith blood loss ER if worsenwill do cbc and call with results. [id number] [facility] [address] [place] [address] 09/02/2024 19:07:59 09/02/2024 20:03:13 Atrial fibrillation 68626695 I48.0 STOP XARELTO PER REQUEST.WI LL RESTART WARFARIN TOMORROW AT 5MG DAILYRECHE CK INR IN 1 WEEK. Functional gait abnormality 4106937447 9103 R26.89 [id number] [facility] [address] [place] [address] 09/10/2024 14:03:19 09/10/2024 14:38:34 Atrial fibrillation 64633473 I48.0 WILL INCREASE WARFARIN FROM 5MG TO 6MG DAILYRECHE CK INR IN 1 WEEK. Chronic low back pain 27 1606412 M54.50 refill norco 10/325mg bid #60mua in chartpmp monitored. Low back pain 982515103 M54.50 refill norco 10/325mg bid #60mua in chartpmp monitored. [id number] [facility] [address] [place] [address] 10/01/2024 12:00:21 10/01/2024 12:41:09 Acute abdominal pain 905629601 R10.9 gallbladde r removed in [place] several weeks agocont current therapy History of gallstones 40 5926883 Z87.19 as above Atrial fibrillation 4943 6004 I48.0 will monitor stool for bloodwill monitor urine for blooddiscu ssed headaches [id number] Calvin Welsh MD OFFICE - [place] [address] [place] [address] 10/20/2024 17:12:04 10/20/2024 18:13:01 Atrial fibrillation 13240385 I48.0 Patient denies cp or sobOn warfarin, last INR 2.9, last week, f/u with pcpRate is controlled , today and is at 70, on metoprolol CHADVASC: 4, has bled 2, stroke risk 4% Coronary arteriosclerosis in alutiiq artery 5529630365 107 I25.10 Patient denies anginal symptomsh/ o CAGB, 12 years agoLast EKG 07/2024: NSR and non specific ST changesPat ient couldn't do PET test due claustroph obiaon GDMT Aneurysm o f thoracic aorta 703525410 I71.20 Previous echo 02/2023: EF 55%, Root 4.3, and Asc aorta 4.2will repeat echo Benign hypertension 1072 5009 I10 blood pressure today was 126/72, report normal BP at home.The patient was advised to maintain a healthy diet low in salt, exercise as tolerated and to keep a home blood pressure log. will continue current medical therapy and re-evaluat e next visit. Mixed hyperlipidemia 267 899412 E78.2 on statin, f/u with pcp Deep venou s thrombosis 129044823 I82.409 s/p DVT, on OAC Carotid bruit 769875954 R09.89 Reviewed CDUS 03/2021 reviewed: Mild disease BLwill continue to monitor clinically [id number] [facility] [address] [place] [address] 10/21/2024 18:22:36 10/21/2024 19:12:53 Low back pain 120936610 M54.50 refill norco 10/325mg bid #60mua in chartpmp monitored. Gastroesop hageal reflux disease without esophagitis 286359400 K21.9 medication refill. Chronic at rial fibrillation 795141107 I48.20 will monitor stool for bloodwill monitor urine for blooddiscu ssed headaches Long-term current use of anticoagulant 458468480 Z79.01 will stop warfarin for 2 days. then restart at 7.5mg daily. Health Concerns Section Related Observation LastModified by Organization Detai ls LastModified Time None Recorded Concern Status LastModified by Organization Details LastModified Time None Recorded Advance Directives Directive Y: Payers Insurance Date Sequence Insurance Name Policy Number Policy Boyle Covered Member ID Boyle Member ID Guarantor Name 11/03/2024 2 [facility] INDO65 Hakeem Julian [id number] Hakeem Julian 10/11/2024 1 [place] Hakeem Julian [id number] Hakeem Julian 10/30/2024 2 [facility] (PPO) [id number] Hakeem Julian [id number] Hakeem Julian Notes Date Note Type Note Provider Name and Address Organization Details Recorded Time 09/02/2024 text/html Patient is here today to discuss possibly getting back on warfarin. pt says he has frequent nose bleeds and he feels warfarin worked better for him. [place] [address] [place] [address], [phone], [facility] 09/02/2024 19:57:26 09/10/2024 text/html Patient is here today for INR check and follow up on warfarin.1.6 todaypt currently taking 5mg warfarin daily [place] [address] [place] [address], [phone], [facility] 09/10/2024 14:41:00 10/01/2024 text/html Hospitalization Contact RecordReported bypatient.Follow UpHospital: Hospital 1; date of discharge: (Please enter in format 'MM/DD/YYYY') (09/18/2024) Patient in today for hospital follow up after having his gallbladder removed. He had a drain from the surgery that needs to be looked at. [place] [address] [place] [address], [place], [phone], [facility] [place] [facility] 10/01/2024 12:38:18 10/20/2024 text/html Mr. Julian is a 84 year old male with CAD,CABG, HTN, prior hx of PE, DVT, DM, obstructive sleep apnea, dyslipidemia. He comes in today for a general follow up. Patient denies cp, sob, dizziness. Patient has swelling in ble. Calvin Welsh MD [address] [place] [address], [place], [phone], [facility] 10/23/2024 10:41:04 10/21/2024 text/html Patient presents for medication refill of Hydrocodone-acetamino phen 10-325mg. Patient presents for a PT/INR check.INR =3.9Pt is currently on Warfarin 10mg M//F 7,5 ALL OTHERS. [place] [address] [place] [address], [place], [phone], [facility] [place] 10/21/2024 19:12:58
[2024-12-01 12:52] VITALS: BP 115/53; PULSE 67; RESP 16; TEMP 36.7; O2SAT 100
[2024-12-01 14:21] VITALS: BP 133/52; PULSE 60; RESP 14; O2SAT 97
[2024-12-01 14:31] VITALS: BP 123/59; PULSE 65; RESP 14; O2SAT 97
--- NOTE | 2024-12-01 16:21 | ED.LOWEXIN ---
HPI - Extremity Injury (Lower) General Chief Complaint: Extremity Injury, Lower Stated Complaint: fall Time Seen by Provider: 12/01/24 14:22 Source: patient and family Mode of arrival: ambulatory Limitations: no limitations History of Present Illness HPI Narrative: Patient presents with report of knee swelling since a fall on 11/24 in a parking lot. He skinned his knee. Denies any pain (other than occasionally to touch in certain areas) but it has remained swollen. He in on coumadin since 2000 for history of blood clots - trialed once on Xarelto but it caused major episodes of epistaxis so coumadin resumed. is concerned for infection/cellulitis. She has been applying a topical antibiotic ointment, and once used Neosporin. They have been icing it. He wears compression stockings. Primarily live in [place] now but return to [place] somewhat frequently as this where they live for several decades. History of bilateral neuropathy, no new paresthesias beyond this. Saw a chiropractor for his back. History 5 bypass operations. Always feels cold but no fevers or new chills. He is Vicodin for chronic pain, Rx for TID PRN but he usually only needs to use it 1-2 x/day. Related Data Allergies Allergy/AdvReac Type Severity Reaction Status Date / Time adhesive Allergy Mild Rash Verified 12/01/24 16:49 cefuroxime Allergy Unknown Unknown Verified 12/01/24 16:49 ANIMAL DYE Allergy Unknown Unknown Uncoded 12/01/24 16:49 PMFSH Past Medical History Medical History Wears hearing aid VTE (venous thromboembolism) Obstructive sleep apnea Prostate cancer CAD (coronary artery disease) Chronic anticoagulation coumadin Thyroid disease GERD (gastroesophageal reflux disease) Urinary retention Diabetes mellitus Hyperlipidemia Hypertension Surgical History Surgical History S/P lobectomy of lung left lower lobectomy May 2015 History of thyroid surgery 2014 History of carpal tunnel release 1998 History of coronary artery bypass graft 2012; 5 vessels Social History Social History Social History: Previously lived in [place]; now live in [place] but return frequently Smoking status: Never smoker Alcohol intake: never Living arrangements: with family Additional living arrangements comments: Occupation/Education: retired Additional occupation/education comments: Worked nearly 40 years Exam Narrative: GENERAL: Well-appearing, well-nourished, and in no acute distress. HEAD: Normocephalic, atraumatic. EYES: Non injected, non icteric ENT: Nares clear, no rhinorrhea or epistaxis. Gross auditory acuity intact, assisted by hearing aid (right). NECK: Supple. No meningismus. CHEST: Speaking in full sentences. No respiratory distress. HEART: Regular rate and rhythm. . ABDOMEN: Obese but Soft, nondistended. EXTREMITIES: Normal range of motion. 2+ right lower extremity edema, 1+ left. Venous stasis bilateral lower extremities, particularly anterior shins SKIN: Warm, dry. Small wound inferior to right knee, fairly superficial but with surrounding erythema including signs of spreading erythema in nondistinct pattern. Extends behind posterior knee. Skin in these areas is warmer to the touch than contralateral limb. NEURO: No focal deficits. Alert and oriented. Answering questions. Following commands. Normal speech without aphasia or dysarthria. PSYCH: Normal mood and affect. Course Vital Signs Vital signs: Vital Signs Temperature 98.0 F 12/01/24 12:52 Pulse Rate 67 12/01/24 12:52 Respiratory Rate 16 12/01/24 12:52 Blood Pressure 115/53 L 12/01/24 12:52 Pulse Oximetry 100 12/01/24 12:52 Temperature 98.0 F 12/01/24 12:52 Pulse Rate 72 12/01/24 19:44 Respiratory Rate 17 12/01/24 19:44 Blood Pressure 153/89 H 12/01/24 19:44 Pulse Oximetry 97 12/01/24 19:44 Oxygen Delivery Room Air 12/01/24 14:21 MDM - Extremity Injury (Lower) MDM Narrative Medical decision making narrative: Patient presents with knee swelling and erythema after falling and scraping it on 11/24. Has been applying triple antibiotic ointment and applying ice. concerned for infection. In the emergency department he is afebrile with acceptable vital signs. Mildly low diastolic blood pressure but with MAPS >75mmHg. Plain film without evidence of acute process only osteoarthritis. ProBNP mildly elevated but not to a degree to suggest acute heart failure based on the reference range of the assay for especially for patient's age. Dimer normal, will not proceed. Leg looks to have obvious cellulitis. Area outlined with skin pen by myself. Patient lists a known allergy to cephalosporin. Given this, will give clindamycin 450 TID with first dose in the ED . He does have a normocytic anemia which is a drop from previous although last result was from approximately 10 months ago. He has been wearing compression stockings. Advised him to continue. Discussed elevating legs. They are traveling soon to [place]. Advised frequently stopping and walking around as well as elevating legs when possible. Verifies understanding. THey are looking for a possible pantograph i engraver. Advised they can pursue that route or re-establish with previous PCP if staying in the area versus given a referral to alternative. Stable for discharge. Given return precautions that would warrent failure of outpatient PO therapy. Verify understanding. The patient called ED at 20:05. They had just left the pharmacy which was unable to fill Rx as they are capsules. Attempted to leave VM but no voicemail box connected. Will re-prescribe as 300mg and 150mg together. Differential Diagnosis Differential diagnosis: Likely acute internal derangement of knee and other (DVT (less likely given on coumadin), cellulitis, abscess; heart failure) Lab Data Attestation: I reviewed the patient's lab results. Lab results narrative: Normal renal function 12/01/24 17:02 12/01/24 17:02 Labs: Lab Results 12/01/24 Range/Units 17:02 WBC 4.5 (4.5-10.0) K/mm3 RBC 3.66 L (4.6-6.20) M/mm3 Hgb 9.5 L (14.0-18.0) g/dL Hct 30.6 L (42.0-52.0) % MCV 83.6 (80-100) fl MCH 26.0 (26-34) pg MCHC 31.0 L (32-36) g/dl RDW 14.8 H (11.5-14.5) % Plt Count 200 (150-375) k/mm3 MPV 8.7 (7.4-10.4) fl Immature Gran % (Auto) 0.7 H (0-0.5) % Neut % (Auto) 63.6 (45.5-73.1) % Lymph % (Auto) 25.9 (18.3-44.2) % Cross % (Auto) 8.2 (2.6-8.5) % Eos % (Auto) 0.9 (0-4.4) % Baso % (Auto) 0.7 (0.2-1.2) % Lymph # (Auto) 1.17 (0.9-3.2) K/mm3 Cross # (Auto) 0.4 (0.1-0.6) K/mm3 Eos # (Auto) 0.0 (0-0.3) K/mm3 Baso # (Auto) 0.0 (0.0-0.1) K/mm3 Abs Immat Gran (auto) 0.03 (0.00-0.031) K/mm3 Absolute Neuts (auto) 2.9 (1.3-6.7) K/mm3 Absolute Nucleated RBC 0.000 (0.0-0.012) K/mm3 Nucleated RBC % 0.0 (0.0-0.2) % ESR 102 H (0-20) mm/hr PT 23.8 H (11.1-14.7) Seconds INR 2.2 APTT 41.3 H (22.3-36.8) Seconds D-Dimer 0.47 (<0.48) ug/mL Sodium 138 (137-145) mmol/L Potassium 3.9 (3.4-5.0) mmol/L Chloride 103 (98-107) mmol/L Carbon Dioxide 26 (22-30) mmol/L Anion Gap 9 (4-12) mmol/L BUN 18 (9-20) mg/dL Creatinine 0.67 L (0.7-1.3) mg/dL Estim Creat Clear Calc 87 ml/min Estimated GFR > 60 (59 - ) Glucose 104 (65-110) mg/dL Calcium 9.1 (8.4-10.2) mg/dL Total Creatine Kinase 48 L (55-170) U/L C-Reactive Protein < 0.5 (<1.0) mg/dL NT-Pro-B Natriuret Pep 283 H (19.9-100) pg/mL Imaging Data Radiologist's impression: FINDINGS/ IMPRESSION: There are no fractures or dislocations.Joint space narrowing, subchondral sclerosis, subchondral cyst formation and osteophyte formation, compatible with moderate to severe osteoarthritis. Atherosclerotic calcifications are seen. Discharge Plan Discharge Clinical Impression: Osteoarthritis of right knee, Cellulitis of right leg, Elevated erythrocyte sedimentation rate, Normocytic anemia, Venous stasis of both lower extremities Patient Disposition: Home Condition: Stable Instructions: Antibiotic Form, Cellulitis (ED), Osteoarthritis (DC), Anemia (ED) Additional Instructions: As we discussed, have your primary care physician follow-up on your anemia. The name of a doctor is listed below if you plan on establishing with someone in the area (and if you are unable to re-establish with Dr Sutton). Alternatively, if you are able to find a pantograph i engraver and establish with them. You received your 1st dose of antibiotic for the cellulitis skin infection today. Take the rest of the course. Return to the emergency department with any new or worsening symptoms such as fever greater than 100.4? F, pain, spreading redness, etc. Make you get out of the car frequently and walk around in stretch to keep the blood flowing while you are on your trip soon. Patient Language: Amharic Prescriptions: New clindamycin HCl [Cleocin HCl] 300 mg capsule See Rx Instructions .ROUTE .COMPLEX Qty: 14 0RF Rx Instructions: 450mg TID 5 days; received 1st dose emergency department 12/01 PM clindamycin HCl [Cleocin HCl] 150 mg capsule 150 mg PO Q8H 5 Days Qty: 14 0RF Rx Instructions: in combination with 300mg capsule for total of 450mg TID dosing; received first dose in ED 12/01 clindamycin HCl [Cleocin HCl] 300 mg capsule 300 mg PO TID 5 Days Qty: 14 0RF Rx Instructions: in combination with 150mg capsule for total of 450mg TID dosing; received first dose in ED 12/01 Follow-up/Referrals: Wesley Fraser MD [Physician] - PHYSICIAN NOT ON STAFF,NONSTAFF [Primary Care Provider] - Lamin Elder MD [Physician] - Time of Disposition: 19:29
[2024-12-01 17:08] LABS: Hematocrit 30.6 % (42.0-52.0); Hemoglobin 9.5 g/dL (14.0-18.0); Immature Granulocyte Percent A 0.7 % (0-0.5); Lymphocytes Absolute Auto 1.17 K/mm3 (0.9-3.2); Mean Corpuscular HGB Conc 31.0 g/dl (32-36); Mean Corpuscular Hemoglobin 26.0 pg (26-34); Mean Corpuscular Volume 83.6 fl (80-100); Nucleated Red Blood Cells Absolute Auto 0.000 K/mm3 (0.0-0.012); Nucleated Red Blood Cells Perc 0.0 % (0.0-0.2); Platelet Count Result 200 k/mm3 (150-375); Red Blood Count 3.66 M/mm3 (4.6-6.20); White Blood Count 4.5 K/mm3 (4.5-10.0)
[2024-12-01 17:12] VITALS: PULSE 66; RESP 18; O2SAT 97
[2024-12-01 17:20] LABS: INR 2.2; Prothrombin Time 23.8 Seconds (11.1-14.7)
[2024-12-01 17:21] LABS: Partial Thromboplastin Time 41.3 Seconds (22.3-36.8)
[2024-12-01 17:31] LABS: Anion Gap 9 mmol/L (4-12); Blood Urea Nitrogen 18 mg/dL (9-20); CRP < 0.5 mg/dL (<1.0); Calcium 9.1 mg/dL (8.4-10.2); Carbon Dioxide 26 mmol/L (22-30); Chloride 103 mmol/L (98-107); Creatine Kinase 48 U/L (55-170); Estimated CRCL calculation 87 ml/min; Estimated Glomerular Filt Rate > 60; Glucose 104 mg/dL (65-110); Potassium 3.9 mmol/L (3.4-5.0); Sodium 138 mmol/L (137-145)
--- NOTE | 2024-12-01 17:32 | PC.NURSE ---
pt states he is now in pain and changed his mind and would like pain medication.
[2024-12-01] MEDS: HYDROcodone/acetaminophen (*CRX) 5-325 MG TABLET 1 TAB PO (17:35)
[2024-12-01 17:36] LABS: NT Pro B Type Natriuretic Pept 283 pg/mL (19.9-100)
[2024-12-01] MEDS: CLINDAMYCIN HCL 150 MG CAP 450 MG PO (19:31)
[2024-12-01 19:44] VITALS: BP 153/89; PULSE 72; RESP 17; O2SAT 97
== END 2024-12-01 19:46 | disposition home or self-care (01) ==
PROVIDERS: Emergency Provider Student in an Organized Health Care Education/Training Program
DX: L03.115 Cellulitis of right lower limb (principal); M17.11 Unilateral primary osteoarthritis, right knee; I87.8 Other specified disorders of veins; D64.9 Anemia, unspecified; R70.0 Elevated erythrocyte sedimentation rate; I10 Essential (primary) hypertension; E07.9 Disorder of thyroid, unspecified; E11.9 Type 2 diabetes mellitus without complications; E78.5 Hyperlipidemia, unspecified; G89.29 Other chronic pain; G47.33 Obstructive sleep apnea (adult) (pediatric); G62.9 Polyneuropathy, unspecified; K21.9 Gastro-esophageal reflux disease without esophagitis; Z95.1 Presence of aortocoronary bypass graft; Z85.46 Personal history of malignant neoplasm of prostate; Z86.718 Personal history of other venous thrombosis and embolism; Z90.2 Acquired absence of lung [part of]; Z79.01 Long term (current) use of anticoagulants; W18.30XA Fall on same level, unspecified, initial encounter
CPT/HCPCS: 36415; 73562; 80048; 82550; 83880; 85025; 85380; 85610; 85652; 85730; 86140; 99283; A9270

== ENCOUNTER 2024-12-07 07:55 | Emergency (ER) | payer MEDICARE, SELFPAY ==
[2024-12-07 07:59] VITALS: BP 173/73; PULSE 83; RESP 14; TEMP 36.4; O2SAT 95
--- OUTSIDE RECORDS SUMMARY | 2024-12-07 08:03 | XMS_ITS | Data Portability ---
Author Organization [place] - [facility], [facility] - Address [address] [place] [address] Care Team Providers Care Progressive Care Unit Registered Nurse Name Role Phone KAREN PARRA Primary Care Provider Assessment Encounter Date Assessment Date Assessment LastModified by Organization Details LastModified Time 10/20/2024 10/20/2024 Mr. Julian is a 84 year old male with CAD,CABG, HTN, prior hx of PE, DVT, DM, obstructive sleep apnea, dyslipidemia. He comes in today for a general follow up. Patient denies cp, sob, dizziness. Patient has swelling in ble. [email or web address] Not available 10/20/2024 17:48:05 Plan of Treatment [...] #7022, [address] [place], [address], 10/21/2024 19:12:54 pantopraz ole 40 mg tablet,de layed release 2024 025 [facility], [address] [place], [address], 10/21/2024 19:12:47 hydrocodo ne 10 mg-acetam inophen 325 mg tablet 2024 025 [facility], [address] [place], [address], 09/10/2024 14:39:33 gabapenti n 100 mg capsule 2024 025 [facility] [address] [place], [address], 10/21/2024 18:28:00 warfarin 1 mg tablet 2024 025 [facility] [address] [place], [address], 09/10/2024 14:39:32 warfarin 5 mg tablet 2024 025 [facility] [address] [place], [address], 09/02/2024 19:51:06 Patient TargetsNo targets recorded. Patient Instructions Encounter Date Encounter Id Patient Instructions Last Modified By Organization Details Last Modified Time 09/02/2024 [id number] atrial fibrillation: care instructions Not available 09/02/2024 19:51:01 09/10/2024 [id number] atrial fibrillation: care instructions Not available 09/10/2024 14:27:54 10/01/2024 [id number] atrial fibrillation: care instructions Not available 10/01/2024 12:37:56 10/20/2024 [id number] thoracic aortic aneurysm: care instructions [email or web address] Not available 10/23/2024 10:40:56 Reason for Referral None Reported. Results Created Date Observation Date Name Description Value Unit Range Abnormal Flag Note LastModifiedBy Organization Detail LastModifiedTime 10/02/19 25 09/13/2024 CT, abdom en + pelvi s, w/o contr ast No observ ation record ed. [email or web address] Not Available 2024 14:29:52 10/02/19 25 09/13/2024 XR, chest No observ ation record ed. [email or web address] Not Available 2024 14:32:03 Result Notes None recorded. Problems Name Problem SNOMED Code Status Onset Date Resolution Date Notes Provider Name and Address Organization Details Recorded Time Benign hypertens ion [id number] Rohit Welsh MD [address] [place] [address], [address] , [facility] 6 14:18:15 Atrial fibrillat ion [id number] Rohit Welsh MD [address] [place] [address], [address] , [facility] 6 14:18:15 Hyperlipi demia [id number] Rohit Welsh MD [address] [place] [address], [address] , [facility] 6 14:18:15 Deep vein phlebitis and thromboph lebitis of the leg Rohit Welsh MD [address] [place] [address], [address] , [facility] 6 19:22:39 Coronary atheroscl erosis [id number] Rohit Welsh MD [address] [place] [address], [address] , [facility] 6 14:18:15 Electroca rdiogram abnormal [id number] Rohit Welsh MD [address] [place] [address], [address] , [facility] 6 19:22:39 Backache 789275722 Active 2019 Backache; Problem descripti on: Back pain conc eptId: [id number] Location : [facility] Last Addressed : 20191130 Secondary : N Practic e ID: 0001 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 Sales Representative jed: Yes Not Available [facility]ly [facility], [facility] 4 10:49:32 Gastroeso phageal reflux disease 496845157 Active 2019 Gastroeso phageal reflux disease; Problem descripti on: GERD conc eptId: [id number] Location : [facility] Last Addressed : 20191130 Secondary : N Practic e ID: 0001 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 Sales Representative jed: Yes Not Available [facility], [facility] 4 10:49:33 Benign prostatic hyperplas ia 837590190 Active 2019 Benign prostatic hyperplas ia; Problem descripti on: BPH - benign prostatic hyperplas ia concep tId: [id number] Location : [facility] Last Addressed : 20191130 Secondary : N Practic e ID: 0001 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 Sales Representative jed: Yes Not Available [facility], [facility] 4 10:49:33 Hypertens elle disorder 76496759 Active 2019 Hypertens elle disorder; Problem descripti on: Hypertens ion adilene ptId: [id number] Location: [facility] Last Addressed : 20191130 Secondary : N Practic e ID: 0001 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 Sales Representative jed: Yes Not Available [facility], [facility] 4 10:49:34 Malignant neoplasm of prostate 597345276 Active 2019 Malignant tumor of prostate; Problem descripti on: Prostate cancer co nceptId: [id number] Location : [facility] Last Addressed : 20191130 Secondary : N Practic e ID: 0001 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 Sales Representative jed: Yes Not Available [facility], [facility] 4 10:49:34 Hypothyro idism 47252641 Active 2019 Hypothyro idism; Problem descripti on: Hypothyro idism con ceptId: [id number] Location: [facility] Last Addressed : 20191130 Secondary : N Practic e ID: 0001 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 Sales Representative jed: Yes JOSH_Franko [address] [place] [address], [place], [address] , [facility] 5 17:07:24 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 278761002 Active 2019 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; Problem descripti on: Coronary arteriosc lerosis of coronary artery bypass graft con ceptId: [id number] Location : [facility] Last Addressed : 20191130 Secondary : N Practic e ID: 0001 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 Sales Representative jed: Yes Not Available [facility] 4 10:49:36 Seasonal allergy 828617574 Active 2019 Seasonal allergy; Problem descripti on: Seasonal allergy c onceptId: [id number] Location : [facility] Last Addressed : 20191130 Secondary : N Practic e ID: 0001 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 Sales Representative jed: Yes Not Available [facility] 4 10:49:36 Melena 6013166 Active 2021 Melena; Problem descripti on: Melena co nceptId: [id number] L ocation: [facility] Pract ice ID: 0001 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 Sales Representative jed: No Not Available [facility] 4 10:49:34 Diarrhea 80417939 Active 2021 Diarrhea; Problem descripti on: Diarrhea, unspecifi ed type conc eptId: [id number] Location: [facility] Pract ice ID: 0001 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 Sales Representative jed: No Not Available [facility] 4 10:49:37 Diabetic periphera l neuropath y 252273353 Active 2021 Not Available [facility] 4 10:49:35 Hypokalem ia 95942204 Active 2021 Not Available [facility] 4 10:49:36 Contusion of right wrist 58791198698 546403 Active 2021 Not Available [facility] 4 10:49:32 Contusion of left elbow 03633962757 874501 Active 2021 Not Available [facility] 4 10:49:32 Contusion of rib 545381482 Active 2021 Not Available [facility] 4 10:49:35 Chronic low back pain 359087311 Active 2022 Not Available [facility] 4 10:49:33 Increased frequency of urination 868030877 Active 03/06/ 2023 Not Available [facility] 4 10:49:33 Essential hypertens ion 50417094 Active [address], [address] , [facility] 4 16:04:32 Diabetes mellitus 37133002 Active [address], [address] , [facility] 4 16:05:44 Low back pain 134783477 [facility] [facility], [address] , [facility] 4 16:10:34 Cough 32529333 Active 2023 [facility], [address] , [facility] 4 12:39:26 Phimosis 554865660 Active [address], [address] , [facility] 4 12:49:54 Prostate specific antigen above reference range 216437432 Active [address], [address] , [facility] 4 17:05:35 Fatigue 54001966 Active 2024 [facility], [address] , [facility] 5 17:22:58 Right upper quadrant pain 126069890 Active [address], [address] , [facility] 5 18:54:32 Coronary arteriosc lerosis in [place] artery 25190658806 07 Active 2024 [facility] 5 17:41:37 Deep venous thrombosi s 686583957 Active 2024 [facility], [facility] 5 17:41:37 Aneurysm of thoracic aorta 104710332 Active 2024 [facility], [facility] 5 17:41:37 Carotid bruit 573969728 Active 2024 [facility] 5 17:41:37 Mixed hyperlipi demia 763959022 Active 2024 [facility] 5 17:41:37 Cholelith iasis without obstructi on 43654575 Active [address], [address] , [facility] 5 16:32:37 Recurrent bleeding of nose Active [address], [address] , [facility] 5 19:04:33 Functiona l gait abnormali ty 78594957882 103 Active [address], [address] , [facility] 5 19:54:17 Acute abdominal pain 119815894 Active [address], [address] , [facility] 5 12:34:57 Gastroeso phageal reflux disease without esophagit is 481008748 Active [address], [place], [address] , [facility] 14:15:43 Chronic atrial fibrillat ion 851623285 Active [address], [place], [address] , [facility] 5 18:51:45 Problem Notes None recorded. Procedures Surgical History Date Name Laterality Status Provider Name and Address Organization Details Recorded Time 06/13/19 16 Thyroid Surgery completed Rosemarie Jacques [facility] 10/06/2015 17:32:34 08/06/19 13 CABG completed [facility] 08/27/2012 12:51:56 Thyroidectomy completed Not Available [facility] 07/13/2023 10:37:05 Carpal Tunnel Surgery completed Not Available [facility] 07/13/2023 10:37:05 procedure on nose completed Not Available [facility] 07/13/2023 10:37:05 Other completed [facility] 08/27/2012 12:59:53 [facility] 18:51:14 Imaging Results None recorded. Procedure Notes None recorded. Medical Equipment None Reported. Allergies Allergen ID Allergen Name Allergen Category Reaction Reaction Severity Criticality Documentation Date Start Date Code Code System Note Provider Name and Address Organization Details Recorded Time iodine medicatio n Not available Not available Not available 07/10/2012 5933 RxNorm Yenni lawson [facility] 3 16:30:04 81779 Product containin g 3-hydroxy -3-methyl glutaryl- coenzyme A reductase inhibitor (product) medicatio n other severe Not available 08/27/2012 72373 009 SNOMED muscl e weakn ess [facility] 3 12:51:56 50877 Substance with sulfonami de structure and antibacte rial mechanism of action (substanc e) medicatio n Not available Not available Not available 07/13/2023 39946 8003 SNOMED Marleny hubbard [facility] 5 17:02:13 86188 adhesive bandage medicatio n Not available Not available Not available 07/13/2023 58883 [facility]K [facility] 5 17:02:07 Medications Name Sig Start Date [...] route. 08/27 completed 08/13 - verbal to [facility] [place] - Not Available Not Available Not Available [...] e 50 mcg/actua tion nasal spray,nurys pension Lucien 1 spray every day by intranas al [...] ROUTE Not Available Not Available Not Available Kennedy 3 Fish Oil 1000mg PO QD active [...] Xhance 93 mcg/actua tion breath activated aerosol Lucien 1 spray twice a day by intranas [...] 5 175.26 cm 16 /min 36.2 kg/m2 434670. 13 g 76 /min 98 % 98 % 130/76 mm[Hg] Christelle Hardy [facility] 5 19:34:50 Date Recorded Body height Respiratory rate Body mass index (BMI) Body weight Oxygen saturation Oxygen saturation in Arterial blood by Pulse oximetry Heart rate Systolic And Diastolic Provider Name and Address Organization Details Last Updated DateTime 5 175.26 cm 16 /min 36.2 kg/m2 659613. 13 g 98 % 98 % 63 /min 122/74 mm[Hg] Christelle Hardy [facility] 5 14:20:10 Date Recorded Body height Respiratory rate Body mass index (BMI) Body weight Heart rate Oxygen saturation Oxygen saturation in Arterial blood by Pulse oximetry Systolic And Diastolic Provider Name and Address Organization Details Last Updated DateTime 5 175.26 cm 16 /min 35.4 kg/m2 742928. 17 g 68 /min 98 % 98 % 132/78 mm[Hg] Christelle Hardy [facility] 5 12:06:53 Date Recorded Body height Respiratory rate Body mass index (BMI) Body weight Oxygen saturation Oxygen saturation in Arterial blood by Pulse oximetry Heart rate Systolic And Diastolic Provider Name and Address Organization Details Last Updated DateTime 5 175.26 cm 16 /min 35.1 kg/m2 885535. 55 g 96 % 96 % 70 /min 126/72 mm[Hg] Kristin Berry [facility] 5 17:45:30 Date Recorded Body height Respiratory rate Heart rate Oxygen saturation Oxygen saturation in Arterial blood by Pulse oximetry Body mass index (BMI) Body weight Systolic And Diastolic Provider Name and Address Organization Details Last Updated DateTime 5 175.26 cm 16 /min 74 /min 96 % 96 % 35.3 kg/m2 205452. 58 g 126/76 mm[Hg] Chasity Aldana [facility] 18:30:47 Social History Question Answer Notes LastModified by Organizat ion Details LastModified Time Tobacco Smoking Status Never Smoker Not Available [facility] 03/08/2020 03:20:52 Do You Have An Advance Directive? Yes [id number] Information not available 03/08/2020 Are You Blind Or Do You Have Difficulty Seeing? No [id number] Information not available 03/08/2020 What Is Your Level Of Caffeine Consumption? Occasional [id number] Information not available 07/13/2023 Are You Deaf Or Do You Have Serious Difficulty Hearing? No [id number] Information not available 03/08/2020 Diabetes No Information no t available 08/27/2012 What Type Of Diet Are You Following? REGULAR [id number] Information not available 03/08/2020 Which Illicit Or Recreational Drugs Have You Used? Denies. [id number] Information not available 03/08/2020 Family History Of Heart Disease? Yes Information not available 08/27/2012 High Blood Pressure Yes Information not available 08/27/2012 High Cholesterol Yes Informat ion not available 08/27/2012 Do You Have Difficulty Bathing Yourself Without Assistance? No Information not available 05/18/2024 Are You Able To Eat And Drink Without Assistance? Yes [email or web address] Information not available 05/18/2024 Is It Difficult To Get Yourself Up And Out Of Bed Or A Chair? No [email or web address] Information not available 05/18/2024 Do You Feel Unsteady When Standing Or Walking? No [email or web address] Information not available 08/17/2024 Are You Worried About Falling? No [email or web address] Information not available 08/17/2024 Have You Had Any Falls In The Past Year? No [email or web address] Information not available 08/17/2024 Where You Injured? No [email or web address] Information not available 08/17/2024 Marital Status Informatio n not available 08/27/2012 Do You Have A Medical Power Of Multi Line Claims Adjuster? Yes [email or web address] Information not available 05/18/2024 What Was The Date Of Your Most Recent Tobacco Screening? 08/17/2024 [email or web address] Information not available 08/17/2024 Obese Yes Information no t available 08/27/2012 Overweight Yes Information no t available 08/27/2012 What Is Your Relationship Status? [id number] Information not available 07/13/2023 Do You Use Your Seat Belt Or Car Seat Routinely? Yes [id number] Information not available 07/13/2023 How Much Tobacco Do You Smoke? No [id number] Information not available 03/08/2020 General Stress Level Medium Information not available 08/27/2012 Do You Use Sunscreen Routinely? Yes [email or web address] Information not available 05/18/2024 Has Tobacco Cessation Counseling Been Provided? No [email or web address] Information not available 03/26/2024 Have You Recently Traveled Abroad? No [id number] 012 Information not available 07/13/2023 Do You Have Difficulty Walking Or Climbing Stairs? No [id number] Information not available 03/08/2020 Sex: Unknown Functional Status Question Answer Note LastModified by [employer]ir[employer] Details LastModified Time Do you or have you ever used any other forms of tobacco or nicotine? No [email or web address] Information not available 03/26/2024 What is your level of alcohol consumption? None [id number] Information not available 03/08/2020 Do you have transportation difficulties? No [email or web address] Information not available 05/18/2024 Are you able to walk? YESWOREST [id number] Information not available 07/13/2023 Do you have difficulty doing errands alone? No [id number] Information not available 03/08/2020 Are you able to care for yourself independently? Yes [id number].[id number] 00365 Information not available 07/13/2023 What is your occupation? Retired Information not available 08/27/2012 Do you have difficulty dressing, bathing, grooming, or toileting? No [id number] Information not available 03/08/2020 What is your exercise level? Moderate 4 walks daily, physical therapy exercises [id number] Information not available 03/08/2020 Mental Status Question Answer Note LastModified by [employer] ion Details LastModified Time Do you feel stressed (tense, restless, nervous, or anxious, or unable to sleep at night)? LP9978-3 [id number] 12 Information not available 07/13/2023 Do you have difficulty concentrating, remembering or making decisions? Yes [id number] Information no t available 03/08/2020 Family History Relationship Description Onset Age of this Age Resolved Age Notes LastModified by Organization Details LastModified Time Father Myocardial infarction 58 [email or web address] Not available 10/06 19:22:51 Medical History Condition Response Coronary Artery Disease Y Hyperthyroidism N CVA/TIA (Stroke) N Neurologic Disorder (Parkinson's, tremor , MS) N COPD N Hypothyroidism Y Depression/Anxiety N Peripheral Arterial Disease N Pacemaker N Anemia N Constipation N Genitourinary Disease N Heart Attack (MD) N Gastrointestinal Disease N Deep Vein Thrombosis [...] adjuvanted, quadrivalent, PF 3 completed Not Available [facility], [facility] 07/13/2023 10:54:37 Tdap 2 completed Not Available [facility] 07/13/2023 10:54:38 zoster recombinant 2 completed Not Available [facility] 07/13/2023 10:54:38 Past Encounters Encounter ID Performer Location Encounter Start Date Encounter Closed Date Diagnosis/Indication Diagnosis SNOMED-CT Code Diagnosis ICD10 Code Diagnosis Note [id number] Calvin Welsh MD OFF[facility] - [place] [address] [facility] [address] [address] 08/27/2012 12:44:04 08/27/2012 16:23:15 [id number] Calvin Welsh MD OFFICE - [place] [address] [address] 03/09/2013 13:08:00 03/09/2013 17:38:06 [id number] Calvin Welsh MD OFFICE - [place] ([facility] OFFICE) [place] [address] 08/27/2013 13:35:06 08/31/2013 11:46:31 Benign hypertension 71664885 BP is good controlled on current medication , no changes in meds Atrial fibrillation 18494761 rate controlled , on anticoagul ation for stroke prevention , checked INR today and it is within range, continue current dose, recheck in 4 weeks Hyperlipidemia 82634219 continue Statin Deep vein phlebitis and thrombophlebitis of the leg 355750742 on anticoagul ation and has IVC filter Coronary atherosclerosis 579047024 stable, doing good, gest some cP, does not sound cardiac, no need for further testing at this point, encouraged diet and exercise [id number] MD ROMIE Shaw - [place] ([facility] OFF[facility]) [address] [place] [address] 02/11/2014 13:35:31 02/17/2014 23:20:17 Benign hypertension 55283005 BP is good controlled on current medication , no changes in meds Atrial fibrillation 07012656 rate controlled , reviewed his INR in office it was 4.2, will adjust his dosage accordingl y and recheck INR in 2 weeks. He is having a procedure on 03/07, he will be stopping Coumadin 03/03. Hyperlipidemia 66046135 continue Statin. Encouraged physical activity and diet. Coronary atherosclerosis 920551708 stable, doing well. Encouraged diet and exercise. Reviewed his EKG showed SB [id number] MD ROMIE [facility] - [place] ([facility]) [address] [place] [address] 08/12/2014 13:51:50 08/12/2014 19:56:37 Benign hypertension 40256273 BP is good controlled on current medication , no changes in meds Atrial fibrillation 94800079 On anticoagul ation for stroke prevention . Will give standing order for INR. Hyperlipidemia 31806641 continue Statin. Encouraged physical activity and diet. Coronary atherosclerosis 842598100 stable, continue medical therapy. Encouraged diet and exercise. [id number] MD [facility] - [place] ([facility] OFFICE) [address] [place] [address] 03/10/2015 12:39:46 03/12/2015 16:36:20 Benign hypertension 75222982 I10 BP is good controlled on current medication , no changes in meds Atrial fibrillation 4943 6004 I48.0 stable, On anticoagul ation for stroke prevention . Hyperlipidemia 95259887 E78.2 continue Statin. Encouraged physical activity and diet. Get lipid panel, it was done recently. Coronary atherosclerosis 820919496 I25.10 stable, continue medical therapy. Encouraged diet and exercise. doing good cardiac robbins. Continue medication for now. [id number] Calvin Welsh MD OFFICE - [place] ([facility] OFFICE) [address] [place] [address] 10/06/2015 16:58:05 10/13/2015 14:18:28 Benign hypertension 42973440 I10 BP is good controlled on current medication , no changes in meds Atrial fibrillation 4943 6004 I48.0 stable, On anticoagul ation for stroke prevention . Rate controlled . Hyperlipidemia 41908625 E78.2 continue Statin. Encouraged physical activity and diet. Coronary atherosclerosis 765065771 I25.10 stable, continue medical therapy. Encouraged diet and exercise. doing good cardiac robbins. No symptoms for now. [id number] Calvin Welsh MD OFFICE - [place] ([facility] OFFICE) [address] [place] [address] 04/19/2016 12:04:25 04/20/2016 00:21:20 Benign hypertension 85474318 I10 BP is good controlled on current medication , no changes in meds Coronary atherosclerosis 671042788 I25.10 stable, continue medical therapy. Encouraged diet and exercise. Hyperlipidemia 47481934 E78.2 continue Statin. Encouraged physical activity and diet. Atrial fibrillation 4943 6004 I48.0 stable, On anticoagul ation for stroke prevention . Rate controlled . Discussed option of Xarelto or Pradaxa, wants to think about it. [id number] Calvin Welsh MD OFFICE - [place] ([facility] OFFICE) [address] [place] [address] 11/01/2016 16:21:45 11/02/2016 18:03:26 Benign hypertension 73303092 I10 BP is good controlled on current medication , no changes in meds Coronary atherosclerosis 262218906 I25.10 stable, continue medical therapy. Encouraged diet and exercise. Atrial fibrillation 4943 6004 I48.0 rate controlled , on anticoagua ltion for stroke prevention Hyperlipidemia 64820626 E78.2 continue Statin. Encouraged physical activity and diet. [id number] Calvin Welsh MD OFFICE - [place] (SPE[facility] OFFICE) [address] [place] [address] 04/18/2017 16:45:48 04/19/2017 19:59:54 Benign hypertension 52512912 I10 BP is good controlled on current medication , no changes in meds. Pt doing good cardiac robbins. No change in medication . Coronary atherosclerosis 737068916 I25.10 stable, continue medical therapy. Encouraged diet and exercise. Atrial fibrillation 4943 6004 I48.91 rate controlled , on anticoagua ltion for stroke prevention Hyperlipidemia 66413145 E78.2 continue Statin. Encouraged physical activity and diet. [id number] Calvin Welsh MD OFFICE - [facility] [address] [place] [address] 09/17/2017 18:00:55 09/21/2017 23:31:11 Benign hypertension 79648190 I10 BP is good controlled on current medication , no changes in meds. Doing good cardiac robbins. Atrial fibrillation 4943 6004 I48.91 reviewed the ekg, showed SR. Coronary atherosclerosis 878259273 I25.10 stable, continue medical therapy. Encouraged diet and exercise. Hyperlipidemia 94634623 E78.2 continue Statin. Encouraged physical activity and diet. [id number] Calvin Welsh MD OFFICE - [facility] ([facility] OFFICE) [address] [place] [address] 03/20/2018 16:13:00 03/21/2018 22:49:31 Paroxysmal atrial fibrillation 005566112 I48.0 rate controlled , on anticoagua ltion for stroke prevention . Coronary arteriosclerosis in [place] artery 8416621143 107 I25.10 stable, continue medical therapy Mixed hyperlipidemia 267 017494 E78.2 continue medical therapy Benign hypertension 1072 5009 I10 BP is good controlled on current medication , no changes in meds. [id number] Calvin Welsh MD OFFICE - [facility] [address] [place] [address] 09/17/2018 16:03:46 09/18/2018 23:09:31 Coronary arteriosclerosis in [place] artery 2830600106 107 I25.10 stable, reviewed the ekg, showed SR. Pt doing good, very active, lost 5 pounds Paroxysmal atrial fibrillation 077808172 I48.0 reviewed the ekg, showed SR. On anticoaugl ation for stroke prevention . Mixed hyperlipidemia 267 944673 E78.2 continue medical therapy Benign hypertension 1072 5009 I10 BP is good controlled on current medication , no changes in meds. [id number] Calvin Welsh MD OFFICE - [facility] [address] [place] [address] 04/01/2019 17:55:42 04/03/2019 17:54:32 Paroxysmal atrial fibrillation 626258150 I48.0 On anticoagul ation for stroke prevention . Rate controlled Coronary arteriosclerosis in [place] artery 3032273312 107 I25.10 stable, offers no new complaints , encourage more excersie. Benign hypertension 1072 5009 I10 BP is good controlled , no changes in medication s Mixed hyperlipidemia 267 653246 E78.2 continue medical therapy, encourgae healthy diet [id number] Calvin Welsh MD OFFICE - [place] ([facility] OFFICE) [address] [place] [address] 10/08/2019 15:33:54 10/09/2019 18:31:48 Atrial fibrillation 86127431 I48.0 Rate controlled , on full medical therapy. Coronary arteriosclerosis in [place] artery 8969810045 107 I25.10 stable, continue medical therapy Benign hypertension 1072 5009 I10 BP is good controlled , no changes in medication s Mixed hyperlipidemia 267 711430 E78.2 continue medical therapy, encourage healthy diet, exercise and diet as well. [id number] Calvin Welsh MD OFFICE - [place] ([facility] OFFICE) [address] [place] [address] 03/31/2020 15:01:49 09/19/2020 03:48:26 Atrial fibrillation 53852460 I48.0 currently on anticoagul ation for stroke prevention rate controlled heart regular today per auscultati on Coronary arteriosclerosis in [place] artery 1887308842 107 I25.10 patient offers no cardiac complaints continue current therapy Benign hypertension 1072 5009 I10 no changes in medication blood pressure well controlled Mixed hyperlipidemia 267 359361 E78.2 stable encourage weight loss [id number] JOVANNY UGALDE MD OFFICE - [facility] ([facility] OFFICE) [address] [place] [address] 10/12/2020 13:40:09 10/19/2020 13:03:49 Atrial fibrillation 45855008 I48.0 Asymptomat ic. Regular rhythm on exam - On xarelto. Tolerating well. No bleeding noted - On metoprolol for rate control Coronary arteriosclerosis in [place] artery 9391509458 107 I25.10 s/p CABG Asymptomat ic I reviewed EKG which shows NSR HR 64 - Continue medical therapy - Obtain outside lipids and LFTs - Obtain outside TTE. He states it was done at [facility] f/u with his cardiologi st Dr. Welsh in 2 months Benign hypertension 1072 5009 I10 Controlled -Continue medical therapy Mixed hyperlipidemia 267 730395 E78.2 - Obtain outside Lipids and LFTs. He states that his primary care provider recently started him on livalo and he had recent lipid panel and LFTs done. Deep venou s thrombosis 299739012 I82.409 Hx of DVT in lower extremity. Asymptomat ic. - On xarelto. No recurrence s since. [id number] Calvin Welsh MD OFFICE - [facility] ([facility] OFFICE) [address] [place] [address] 11/24/2020 17:02:12 11/29/2020 12:06:47 Atrial fibrillation 54358015 I48.0 rate is controlled no changes in medication s, currently on anticoagul ation for stroke prevention Coronary arteriosclerosis in [place] artery 1013701403 107 I25.10 stable patient offers no cardiac complaints will continue current medical therapy EKG reviewed showed mild AR and mild MR EF 57% repeat echo in 1 year Benign hypertension 1072 5009 I10 no changes in her medication blood pressure is well controlled Mixed hyperlipidemia 267 756780 E78.2 labs reviewed continue current medical therapy Deep venou s thrombosis 918096726 I82.409 asymptomat ic continue anticoagul ation Carotid bruit 835716770 R09.89 slight carotid bruit heard to the left carotid artery will do ultrasound prior to next visit for further evaluation [id number] Calvin Welsh MD OFFICE - [facility] ([facility] OFFICE) [address] [place] [address] 04/27/2021 18:04:21 05/23/2021 16:01:19 Atrial fibrillation 34529020 I48.0 rate is controlled no changes in medication s, currently on anticoagul ation for stroke prevention Coronary arteriosclerosis in [place] artery 3160712131 107 I25.10 stable patient offers no cardiac complaints will continue current medical therapy EKG reviewed showed mild AR and mild MR EF 57% repeat echo in 1 year Benign hypertension 1072 5009 I10 no changes in her medication blood pressure is well controlled Mixed hyperlipidemia 267 233324 E78.2 labs reviewed continue current medical therapy Deep venou s thrombosis 846683382 I82.409 asymptomat ic continue anticoagul ation Carotid bruit 666655292 R09.89 ultrasound was reviewed mild disease at the same time there was the nodule on the thyroid referred for ENT evaluation [id number] Calvin Welsh MD OFFICE - [facility] ([facility] OFFICE) [address] [address] 10/05/2021 16:33:49 10/16/2021 16:35:28 Atrial fibrillation 83567929 I48.0 continue anticoagul ation for stroke prevention rate is controlled Coronary arteriosclerosis in [place] artery 1894835561 107 I25.10 stable patient denies any symptoms at today's visit we will continue current medical therapy Benign hypertension 1072 5009 I10 no changes in her medication blood pressure is well controlled Carotid bruit 821562988 R09.89 minimal stenosis was noted repeat ultrasound 1 year Mixed hyperlipidemia 267 568376 E78.2 currently on statin Deep venou s thrombosis 693527663 I82.409 continues to be on anticoagul ation Aneurysm o f thoracic aorta 947243487 I71.2 4.2 cm on last echocardio gram repeat prior to next visit for evaluation [id number] Calvin Welsh MD OFFICE - [facility] ([facility] OFFICE) [address] [address] 03/22/2022 14:34:44 04/02/2022 15:55:19 Atrial fibrillation 77341740 I48.0 The patients' IWT6GETU6T score is 6. Continue the patient on metoprolol for rate control and xeralto for stroke prevention . Coronary arteriosclerosis in [place] artery 9767573168 107 I25.10 The patient denies taking aspirin. Will add aspirins. The patient reports that he feels really good and denies symptoms. Aneurysm o f thoracic aorta 076829088 4.2 cm on last echocardio gram repeat prior to next visit for evaluation Benign hypertension 1072 5009 I10 Today's blood pressure is 124/64. He states that his blood pressure is well controlled at home. Will continue current medication s. Carotid bruit 830553300 R09.89 minimal stenosis was noted on previous carotid US. No further testing required unless the patient reports symptoms. Mixed hyperlipidemia 267 287010 E78.2 currently on statin. Advised the patient to follow healthy diet and exercise regurarly. Deep venou s thrombosis 537138106 I82.409 The patient reports no symptoms. We'll continue the patient on current medication s. [id number] HAKEEM MCHUGH NP OFFICE - [facility] ([facility] OFFICE) [address] [place] [address] 09/17/2022 14:38:43 09/21/2022 17:55:06 Atrial fibrillation 45741707 I48.0 rate is controlled continue anticoagul ation for stroke prevention Coronary arteriosclerosis in [place] artery 0875950742 107 I25.10 stable continue current medical therapy Aneurysm o f thoracic aorta 337541343 I71.20 repeat echo prior to next visit for evaluation Benign hypertension 1072 5009 I10 blood pressure well controlled no change in current medical therapy Carotid bruit 739932468 R09.89 order follow-up ultrasound next visit for evaluation Mixed hyperlipidemia 267 445797 E78.2 continue statin encouraged weight loss Deep venou s thrombosis 631483749 I82.409 no further symptoms reported by patient he does have swelling to lower extremitie s this is not new he does wear compressio n socks daily [id number] HAKEEM MCHUGH NP OFFICE - [facility] ([facility] OFFICE) [address] [place] [address] 03/18/2023 11:57:43 03/18/2023 12:25:25 Atrial fibrillation 44618930 I48.0 Continue anticoagul ation for stroke prevention . Rate is controlled today's visit patient offers no cardiac complaints . Coronary arteriosclerosis in [place] artery 1824507539 107 I25.10 Continue current medical therapy patient offers no cardiac complaints at today's visit. Aneurysm o f thoracic aorta 080795331 I71.20 4.3 cm on recent echocardio gram repeat in 1 year for re-evaluat ion. Benign hypertension 1072 5009 I10 No changes in medical therapy blood pressure controlled . Carotid bruit 741609894 R09.89 Will order follow-up ultrasound prior to next visit for re-evaluat ion. Mixed hyperlipidemia 267 491509 E78.2 Stable, continue statin. Deep venou s thrombosis 169546269 I82.409 Advised to continue wearing compressio n socks. [id number] [facility] [address] [place] [address] 05/30/2023 15:17:56 05/30/2023 16:16:50 Essential hypertension 42694410 I10 cont to monitor bp at homelow salt and caffeineco nt medication labs in 3-6 mos Hyperlipidemia 23372853 E78.5 discussed diet and exerciseco nt current medication labs in 3-6 mos Diabetes mellitus 294391 09 E11.9 A1c 7.1 [id number] [facility] [address] [place] [address] 02/20/2022 00:00:00 02/20/2022 14:09:27 [id number] [facility] [address] [place] [address] 04/24/2022 00:00:00 04/24/2022 15:53:40 [id number] [facility] [address] [place] [address] 05/29/2022 00:00:00 05/29/2022 15:33:30 [id number] JONATHON HARRINGTON [facility] [address] [place] [address] 07/16/2022 00:00:00 07/16/2022 13:19:48 [id number] [facility] [address] [place] [address] 08/13/2022 00:00:00 08/13/2022 18:44:28 [id number] [facility] [address] [place] [address] 11/01/2022 00:00:00 11/01/2022 17:20:06 [id number] [facility] [address] [place] [address] 02/20/2023 00:00:00 02/20/2023 15:09:11 [id number] [facility] [address] [place] [address] 07/16/2023 12:12:56 07/16/2023 13:12:52 Cough 62957400 R05.9 DDx allergic rhinitis.w ill do cxr if worsencont otc medication swill give decadron 8mg im now. Phimosis 097448851 N47.1 will use clobetasol cream bidkeep area clean and dry. [id number] [facility] [address] [place] [address] 08/07/2023 16:30:02 08/07/2023 17:44:27 Benign hypertension 78241773 I10 cont to monitor bp at homelow salt and caffeineco nt medication labs in 3-6 mos Hyperlipidemia 86849314 E78.5 discussed diet and exerciseco nt current medication labs in 3-6 mos Hypokalemia 69672231 E87 .6 medication refilled. Diabetes mellitus 535423 09 E11.9 A1c 7.1 Hypothyroidism 83535391 E03.9 will do labs. Low back pain 517298916 M54.50 refill norco 10/325mg qid #20 Benign pro static hyperplasia 445714618 N40.0 medication refilled today [id number] [facility] [address] [place] [address] 02/03/2024 16:02:29 02/03/2024 16:53:18 Low back pain 377642407 M54.50 refill norco 10/325mg qid #20 [id number] [facility] [address] [place] [address] 02/10/2024 15:40:44 02/10/2024 17:14:30 Low back pain 451149820 M54.50 refill norco 10/325mg bid #60 [id number] [facility] [address] [place] [address] 05/20/2024 13:02:30 05/20/2024 14:11:00 Hypothyroidism 52247958 E03.9 will do labs. Benign hypertension 1072 5009 I10 cont to monitor bp at homelow salt and caffeineco nt medication labs in 3-6 mos Hyperlipidemia 10645909 E78.5 discussed diet and exerciseco nt current medication labs in 3-6 mos Prostate s pecific antigen above reference range 683363334 R97.20 Diabetic p eripheral neuropathy 178643184 E11.40 Physical examination 588 0005 Z00.00 exam completed today [id number] SU MARTINEZ PA-C [facility] [address] [place] [address] 03/26/2024 14:17:12 03/26/2024 15:21:53 Essential hypertension 72089212 I10 Patient encouraged to monitor blood pressure readings at home.Call the office if readings are consistent ly >140/90.Co ntinue current medication s.Seek ER if any alarming symptoms arise. 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 [id number] [facility] [address] [place] [address] 04/29/2024 12:49:42 04/29/2024 14:24:21 Low back pain 058240159 M54.50 refill norco 10/325mg bid #60 [id number] [facility] [address] [place] [address] 06/10/2024 16:59:08 06/10/2024 17:37:02 Fatigue 27076041 R53.83 will order labsER if wosen. [id number] [facility] [address] [place] [address] 06/29/2024 15:41:54 06/29/2024 17:08:35 Renewal of prescription 123425469 Z76.0 Low back pain 950049291 M54.50 refill norco 10/325mg bid #60mua in chartpmp monitored. [id number] [facility] [address] [place] [address] 07/15/2024 16:00:42 07/15/2024 17:29:57 Hypothyroidism 40010944 E03.9 medication refill Benign pro static hyperplasia 142102038 N40.0 medication refilled today [id number] Calvin Welsh MD OFFICE - [facility] [address] [place] [address] 07/20/2024 17:06:34 07/20/2024 18:02:04 Atrial fibrillation 76928492 I48.0 c/o sobOn anticoagul ation for stroke prevention . Rate is controlled today and is at 73, on metoprolol CHADVASC: 4, has bled 2, stroke risk 4% Coronary arteriosclerosis in [place] artery 4763346589 107 I25.10 c/o exertional elis/o CAGBReview ed EKG today: NSR and non specific ST changeson GDMTwill do stress test Aneurysm o f thoracic aorta 026140585 I71.20 4.3 cm on previous echo 02/2023wil l repeat echo Benign hypertension 1072 5009 I10 blood pressure today was 138/82, report normal BP at home.The patient was advised to maintain a healthy diet low in salt, exercise as tolerated and to keep a home blood pressure log. will continue current medical therapy and re-evaluat e next visit. Carotid bruit 587288766 R09.89 Reviewed CDUS 03/2021 reviewed: Mild disease BLwill repeat CDUS every two to three years Mixed hyperlipidemia 267 591572 E78.2 Stable, continue statin. Deep venou s thrombosis 087117124 I82.409 Advised to continue wearing compressio n socks. [id number] [facility] [address] [place] [address] 08/11/2024 15:57:16 08/11/2024 16:38:14 Phimosis 735713046 N47.1 will use clobetasol cream bidkeep area clean and dry. Low back pain 981560394 M54.50 refill norco 10/325mg bid #60mua in chartpmp monitored. Cholelithi asis without obstruction 12877598 K80.[address] Westbrook if any difficulti es.ultraso und reviewed. [id number] [facility] [address] [place] [address] 08/17/2024 18:20:09 08/17/2024 20:03:11 Recurrent bleeding of nose 3349196269 102 R04.0 will follow up with Dr Geoff smith blood loss ER if worsenwill do cbc and call with results. [id number] [facility] [address] [place] [address] 09/02/2024 19:07:59 09/02/2024 20:03:13 Atrial fibrillation 39704689 I48.0 STOP XARELTO PER REQUEST.WI LL RESTART WARFARIN TOMORROW AT 5MG DAILYRECHE CK INR IN 1 WEEK. Functional gait abnormality 9655976682 9103 R26.89 [id number] [facility] [address] [place] [address] 09/10/2024 14:03:19 09/10/2024 14:38:34 Atrial fibrillation 14685192 I48.0 WILL INCREASE WARFARIN FROM 5MG TO 6MG DAILYRECHE CK INR IN 1 WEEK. Chronic low back pain 27 9267474 M54.50 refill norco 10/325mg bid #60mua in chartpmp monitored. Low back pain 846663069 M54.50 refill norco 10/325mg bid #60mua in chartpmp monitored. [id number] [facility] [address] [place] [address] 10/01/2024 12:00:21 10/01/2024 12:41:09 Acute abdominal pain 088439394 R10.9 gallbladde r removed in [place] several weeks agocont current therapy History of gallstones 40 5082311 Z87.19 as above Atrial fibrillation 4943 6004 I48.0 will monitor stool for bloodwill monitor urine for blooddiscu ssed headaches [id number] Calvin Welsh MD OFFICE - [facility] [address] [place] [address] 10/20/2024 17:12:04 10/20/2024 18:13:01 Atrial fibrillation 02687852 I48.0 Patient denies cp or sobOn warfarin, last INR 2.9, last week, f/u with pcpRate is controlled , today and is at 70, on metoprolol CHADVASC: 4, has bled 2, stroke risk 4% Coronary arteriosclerosis in [place] artery 3704013880 107 I25.10 Patient denies anginal symptomsh/ o CAGB, 12 years agoLast EKG 07/2024: NSR and non specific ST changesPat ient couldn't do PET test due claustroph obiaon GDMT Aneurysm o f thoracic aorta 840032276 I71.20 Previous echo 02/2023: EF 55%, Root [...] re-evaluat e next visit. Mixed hyperlipidemia 267 925156 E78.2 on statin, f/u with pcp Deep venou s thrombosis 218049050 I82.409 s/p DVT, on OAC Carotid bruit 932635809 R09.89 Reviewed CDUS 03/2021 reviewed: Mild disease BLwill continue to monitor clinically [id number] [facility] [address] [place] [address] 10/21/2024 18:22:36 10/21/2024 19:12:53 Low back pain 471730317 M54.50 refill norco 10/325mg bid #60mua in chartpmp monitored. Gastroesop hageal reflux disease without esophagitis 989100873 K21.9 medication refill. Chronic at rial fibrillation 146825329 I48.20 will monitor stool for bloodwill monitor urine for blooddiscu ssed headaches Long-term current use of anticoagulant 594553701 Z79.01 will stop warfarin for 2 days. then restart at 7.5mg daily. Health Concerns Section Related Observation LastModified by Organization Detai ls LastModified Time None Recorded Concern Status LastModified by Organization Details LastModified Time None Recorded Advance Directives Directive Y: Payers Insurance Date Sequence Insurance Name Policy Number Policy Boyle Covered Member ID Boyle Member ID Guarantor Name 11/03/2024 2 [facility] IN[place]65 Hakeem Julian [id number] Hakeem Julian 10/11/2024 1 [place] Hakeem Julian [id number] Hakeem Julian 10/30/2024 2 [facility] (PP[place] [id number] Hakeem Julian [id number] Hakeem Julian
--- NOTE | 2024-12-07 08:19 | ED.GENADULT ---
HPI - General Adult General Chief complaint: Skin/Abscess/Foreign Body Stated complaint: f/u for cellulitis Time Seen by Provider: 12/07/24 08:01 History of Present Illness HPI narrative: 84-year-old male present to the emergency department for evaluation for his cellulitis. Patient had been started clindamycin and is heading on a road trip and was concerned about leaving town and wanted to have the cellulitis rechecked. Patient did have areas of cellulitis marked on his leg but patient has no residual erythema concerning for cellulitis. Patient states he does feel improved. Patient denies any cough colds or fevers. Related Data Allergies Allergy/AdvReac Type Severity Reaction Status Date / Time adhesive Allergy Mild Rash Verified 12/07/24 08:04 cefuroxime Allergy Unknown Unknown Verified 12/07/24 08:04 ANIMAL DYE Allergy Unknown Unknown Uncoded 12/07/24 08:04 Review of Systems Review of Systems: All systems reviewed & are unremarkable except as noted in HPI and below PMFSH Past Medical History Medical History Wears hearing aid VTE (venous thromboembolism) Obstructive sleep apnea Prostate cancer CAD (coronary artery disease) Chronic anticoagulation coumadin Thyroid disease GERD (gastroesophageal reflux disease) Urinary retention Diabetes mellitus Hyperlipidemia Hypertension Surgical History Surgical History S/P lobectomy of lung left lower lobectomy May 2015 History of thyroid surgery 2014 History of carpal tunnel release 1998 History of coronary artery bypass graft 2012; 5 vessels Social History Social History Social History: Previously lived in [place]; now live in [place] but return frequently Smoking status: Never smoker Alcohol intake: never Living arrangements: with family Additional living arrangements comments: Occupation/Education: retired Additional occupation/education comments: Worked nearly 40 years Exam Narrative: APPEARANCE: Well appearing, no pain, no distress, well-nourished. HEAD: normocephalic, atraumatic. EYES: PERRLA/EOMI, conjunctivae clear. NOSE: Normal no drainage EARS:TMS clear with good light reflex. THROAT: Pharynx clear, no exudate. NECK: Supple. No adenopathy, no masses. RESPIRATORY: Airway patent, respirations nonlabored. Clear to auscultation bilaterally, no rales, rhonchi, wheezing. CARDIOVASCULAR: Regular rate and rhythm without murmurs rubs or gallops. ABDOMINAL: Soft, nontender, nondistended, normal bowel sounds MUSCULOSKELETAL: Moves all extremities. Strength/ROM intact, No edema, No calf tenderness. NEURO: Alert. Cranial nerves II through XII intact. Good gait. Good coordination SKIN: No evidence of an a residual cellulitis. Patient does have a contusion to his anterior right knee but there is no cellulitic appearance to this PSYCHIATRIC: Normal affect/mood. Course Vital Signs Vital signs: Vital Signs Temperature 97.5 F L 12/07/24 07:59 Pulse Rate 83 12/07/24 07:59 Respiratory Rate 14 12/07/24 07:59 Blood Pressure 173/73 H 12/07/24 07:59 Pulse Oximetry 95 12/07/24 07:59 Oxygen Delivery Room Air 12/07/24 07:59 Temperature 97.5 F L 12/07/24 07:59 Pulse Rate 81 12/07/24 08:40 Respiratory Rate 16 12/07/24 08:40 Blood Pressure 173/73 H 12/07/24 08:40 Pulse Oximetry 98 12/07/24 08:40 Oxygen Delivery Room Air 12/07/24 07:59 Medical Decision Making MDM Narrative Medical decision making narrative: 84-year-old male presents emergency department for evaluation for a wound check of a cellulitis. Cellulitis is significantly improved. No evidence of current cellulitis. Patient will not be started on any additional antibiotics. Patient family were updated on the results of the evaluation. Differential Diagnosis Differential Diagnosis: Chronic venous stasis, DVT, cellulitis Vital Signs Vital Signs: Vital Signs Temperature 97.5 F L 12/07/24 07:59 Pulse Rate 83 12/07/24 07:59 Respiratory Rate 14 12/07/24 07:59 Blood Pressure 173/73 H 12/07/24 07:59 Pulse Oximetry 95 12/07/24 07:59 Oxygen Delivery Room Air 12/07/24 07:59 Temperature 97.5 F L 12/07/24 07:59 Pulse Rate 81 12/07/24 08:40 Respiratory Rate 16 12/07/24 08:40 Blood Pressure 173/73 H 12/07/24 08:40 Pulse Oximetry 98 12/07/24 08:40 Oxygen Delivery Room Air 12/07/24 07:59 Discharge Plan Discharge Clinical Impression: Visit for wound check Patient Disposition: Home Condition: Stable Instructions: Antibiotic Form, Cellulitis (ED) Additional Instructions: Continue to have close follow-up with your primary care physician. If you have any worsening symptoms then please call or return to the emergency department. Patient Language: Vietnamese Prescriptions: No Action clindamycin HCl [Cleocin HCl] 300 mg capsule See Rx Instructions .ROUTE .COMPLEX Qty: 14 0RF Rx Instructions: 450mg TID 5 days; received 1st dose emergency department 12/01 PM clindamycin HCl [Cleocin HCl] 150 mg capsule 150 mg PO Q8H 5 Days Qty: 14 0RF Rx Instructions: in combination with 300mg capsule for total of 450mg TID dosing; received first dose in ED 12/01 clindamycin HCl [Cleocin HCl] 300 mg capsule 300 mg PO TID 5 Days Qty: 14 0RF Rx Instructions: in combination with 150mg capsule for total of 450mg TID dosing; received first dose in ED 12/01 Follow-up/Referrals: PHYSICIAN NOT ON STAFF,NONSTAFF [Primary Care Provider] -
[2024-12-07 08:40] VITALS: BP 173/73; PULSE 81; RESP 16; O2SAT 98
== END 2024-12-07 08:42 | disposition home or self-care (01) ==
PROVIDERS: Emergency Provider Emergency Medicine
DX: S80.01XD Contusion of right knee, subsequent encounter (principal); I25.10 Atherosclerotic heart disease of native coronary artery without angina pectoris; I10 Essential (primary) hypertension; E07.9 Disorder of thyroid, unspecified; E11.9 Type 2 diabetes mellitus without complications; E78.5 Hyperlipidemia, unspecified; K21.9 Gastro-esophageal reflux disease without esophagitis; G47.33 Obstructive sleep apnea (adult) (pediatric); Z95.1 Presence of aortocoronary bypass graft; Z85.46 Personal history of malignant neoplasm of prostate; Z86.718 Personal history of other venous thrombosis and embolism; Z90.2 Acquired absence of lung [part of]; X58.XXXD Exposure to other specified factors, subsequent encounter
CPT/HCPCS: 99281

== ENCOUNTER 2024-12-11 06:10 | Emergency (ER) | payer MEDICARE, BC, SELFPAY ==
--- NOTE | ~2024-12-11 | CT_ITS ---
CLINICAL INDICATION: Intermittent rectal bleeding COMPARISON: . TECHNIQUE: Multiple contiguous axial images of the abdomen and pelvis were performed following the ad ministration of with 100 mL Omnipaque-350 intravenous contrast The dose-length product (DLP) was 1348.51 mGy-cm. Automated exposure control and iterative reconstruction technique were employed. FINDINGS/OBSERVATIONS: Visualized lower thorax: The bilateral lung bases are clear. The heart is of normal size, without pericardial effusion. Small hiatal hernia is present. Liver: The liver demonstrates homogeneous enhancement and is not enlarged. Gallbladder and biliary system: The gallbladder is surgically absent. Pancreas: The pancreas is atrophic, but enhances homogeneously without ductal dilatation. Spleen: Punctate calcifications identified within the splenic parenchyma, suggesting prior granulomat ous disease. The remainder of the spleen otherwise enhances homogeneously and is not enlarged. Kidneys: The bilateral kidneys enhance symmetrically without hydronephrosis or renal calculi. Adrenal glands: Unremarkable. Gastrointestinal tract: Fecal stasis within the colon. Increased attenuation is identified within the aerated stool of the rectum, consistent with patient's history. No discrete contrast extravasation is appreciated. Appendix: The air-filled appendix is of normal caliber (axial series, images 105 through 122) Vasculature: Densely calcified atherosclerotic disease. Filter within the infrarenal abdominal aorta, with its tip approximately 14 mm from the inflow of the bilateral renal arteries. The struts of the filter appear to be outside the confines of the inferior vena cava. Lymph nodes: No pathologically enlarged or morphologically suspicious lymph nodes within the retroperitoneum or at the root of the mesentery. Pelvic structures: The bladder is only minimally distended, and demonstrates thickened saleem. The prostate gland is not enlarged. Body wall and musculoskeletal: Age-appropriate degenerative disease within the lower thoracic and lumbosacral spines. IMPRESSION: Increased attenuation of the aerated stool within the rectosigmoid colon, consistent with patient's h istory without active extravasation visualized. Reviewed, dictated and finalized at location A. IMPRESSION: Increased attenuation of the aerated stool within the rectosigmoid colon, consi stent with patient's history without active extravasation visualized.
[2024-12-11 06:19] VITALS: PULSE 67; RESP 16; TEMP 36.6; O2SAT 99
[2024-12-11 06:21] VITALS: BP 153/73; O2SAT 96
[2024-12-11 06:43] LABS: Hematocrit 34.6 % (42.0-52.0); Hemoglobin 10.6 g/dL (14.0-18.0); Immature Granulocyte Percent A 0.6 % (0-0.5); Lymphocytes Absolute Auto 1.57 K/mm3 (0.9-3.2); Mean Corpuscular HGB Conc 30.6 g/dl (32-36); Mean Corpuscular Hemoglobin 26.2 pg (26-34); Mean Corpuscular Volume 85.6 fl (80-100); Nucleated Red Blood Cells Absolute Auto 0.000 K/mm3 (0.0-0.012); Nucleated Red Blood Cells Perc 0.0 % (0.0-0.2); Platelet Count Result 268 k/mm3 (150-375); Red Blood Count 4.04 M/mm3 (4.6-6.20); White Blood Count 5.2 K/mm3 (4.5-10.0)
[2024-12-11 07:07] LABS: INR 3.7; Prothrombin Time 35.9 Seconds (11.1-14.7)
[2024-12-11 07:09] LABS: Partial Thromboplastin Time 68.3 Seconds (22.3-36.8)
[2024-12-11 07:18] LABS: Alanine Aminotransferase 21 U/L (6-50); Albumin Level 4.8 g/dL (3.5-5.1); Alkaline Phosphatase 90 U/L (38-126); Anion Gap 13 mmol/L (4-12); Aspartate Amino Transferase 42 U/L (17-59); Bilirubin,Total 0.6 mg/dL (0.2-1.3); Blood Urea Nitrogen 16 mg/dL (9-20); Calcium 10.0 mg/dL (8.4-10.2); Carbon Dioxide 28 mmol/L (22-30); Chloride 99 mmol/L (98-107); Estimated CRCL calculation 74 ml/min; Estimated Glomerular Filt Rate > 60; Glucose 141 mg/dL (65-110); Potassium 4.1 mmol/L (3.4-5.0); Sodium 140 mmol/L (137-145); Total Protein 9.1 g/dL (6.3-8.2)
--- NOTE | 2024-12-11 07:27 | ED.GENADULT ---
HPI - General Adult General Chief complaint: GI Bleed Stated complaint: rectal bleeding Time Seen by Provider: 12/11/24 07:04 History of Present Illness HPI narrative: 84-year-old male presents to the emergency department for evaluation for intermittent rectal bleeding. Patient does have a remote history of cancer and did get radiation therapy back in 2015. Patient states he did have recent cellulitis, was started on antibiotic and did develop some diarrhea. Patient states he has had some intermittent spotting of blood in his pad. Patient states the diarrhea is improving. Patient also states that the bleeding has also improved. Related Data Allergies Allergy/AdvReac Type Severity Reaction Status Date / Time adhesive Allergy Mild Rash Verified 12/07/24 08:04 cefuroxime Allergy Unknown Unknown Verified 12/07/24 08:04 ANIMAL DYE Allergy Unknown Unknown Uncoded 12/07/24 08:04 Review of Systems Review of Systems: All systems reviewed & are unremarkable except as noted in HPI and below PMFSH Past Medical History Medical History Wears hearing aid VTE (venous thromboembolism) Obstructive sleep apnea Prostate cancer CAD (coronary artery disease) Chronic anticoagulation coumadin Thyroid disease GERD (gastroesophageal reflux disease) Urinary retention Diabetes mellitus Hyperlipidemia Hypertension Surgical History Surgical History S/P lobectomy of lung left lower lobectomy May 2015 History of thyroid surgery 2014 History of carpal tunnel release 1998 History of coronary artery bypass graft 2012; 5 vessels Social History Social History Social History: Previously lived in [place]; now live in [place] but return frequently Smoking status: Never smoker Alcohol intake: never Living arrangements: with family Additional living arrangements comments: Occupation/Education: retired Additional occupation/education comments: Worked nearly 40 years Exam Narrative: APPEARANCE: Well appearing, no pain, no distress, well-nourished. HEAD: normocephalic, atraumatic. EYES: PERRLA/EOMI, conjunctivae clear. NOSE: Normal no drainage EARS:TMS clear with good light reflex. THROAT: Pharynx clear, no exudate. NECK: Supple. No adenopathy, no masses. RESPIRATORY: Airway patent, respirations nonlabored. Clear to auscultation bilaterally, no rales, rhonchi, wheezing. CARDIOVASCULAR: Regular rate and rhythm without murmurs rubs or gallops. ABDOMINAL: Soft, nontender, nondistended, normal bowel sounds MUSCULOSKELETAL: Moves all extremities. Strength/ROM intact, No edema, No calf tenderness. NEURO: Alert. Cranial nerves II through XII intact. Good gait. Good coordination SKIN: Warm, dry. Normal Color Rectal exam: Hemoccult negative, no no active bleeding Course Vital Signs Vital signs: Vital Signs Temperature 97.8 F 12/11/24 06:19 Pulse Rate 67 12/11/24 06:19 Respiratory Rate 16 12/11/24 06:19 Pulse Oximetry 99 12/11/24 06:19 Oxygen Delivery Room Air 12/11/24 06:19 Temperature 97.8 F 12/11/24 06:19 Pulse Rate 66 12/11/24 08:30 Respiratory Rate 16 12/11/24 08:30 Blood Pressure 120/58 L 12/11/24 08:30 Pulse Oximetry 98 12/11/24 08:30 Oxygen Delivery Room Air 12/11/24 06:19 Medical Decision Making MDM Narrative Medical decision making narrative: 84-year-old male presents to the emergency department for evaluation for intermittent rectal bleeding. Patient is currently afebrile with no leukocytosis hemoglobin of 10.6. INR is 3.7. Patient has no acute abnormalities on his CMP. CT scan shows no active extravasation. Patient was Hemoccult negative on his digital rectal exam with no blood in his undergarment, no bright red blood on the glove and Hemoccult-negative stool. Patient family updated the results of the workup they are comfortable the plan for discharge and close follow-up. Differential Diagnosis Differential Diagnosis: Diarrhea, hemorrhoids, colitis, diverticulitis, melena, hematochezia Vital Signs Vital Signs: Vital Signs Temperature 97.8 F 12/11/24 06:19 Pulse Rate 67 12/11/24 06:19 Respiratory Rate 16 12/11/24 06:19 Pulse Oximetry 99 12/11/24 06:19 Oxygen Delivery Room Air 12/11/24 06:19 Temperature 97.8 F 12/11/24 06:19 Pulse Rate 66 12/11/24 08:30 Respiratory Rate 16 12/11/24 08:30 Blood Pressure 120/58 L 12/11/24 08:30 Pulse Oximetry 98 12/11/24 08:30 Oxygen Delivery Room Air 12/11/24 06:19 Lab Data Lab results reviewed: Yes I reviewed the patient's lab results. 12/11/24 06:32 12/11/24 06:32 Labs: Lab Results 12/11/24 Range/Units 06:32 WBC 5.2 (4.5-10.0) K/mm3 RBC 4.04 L (4.6-6.20) M/mm3 Hgb 10.6 L (14.0-18.0) g/dL Hct 34.6 L (42.0-52.0) % MCV 85.6 (80-100) fl MCH 26.2 (26-34) pg MCHC 30.6 L (32-36) g/dl RDW 15.1 H (11.5-14.5) % Plt Count 268 (150-375) k/mm3 MPV 9.4 (7.4-10.4) fl Immature Gran % (Auto) 0.6 H (0-0.5) % Neut % (Auto) 58.2 (45.5-73.1) % Lymph % (Auto) 30.3 (18.3-44.2) % Mcdonough % (Auto) 9.5 H (2.6-8.5) % Eos % (Auto) 1.0 (0-4.4) % Baso % (Auto) 0.4 (0.2-1.2) % Lymph # (Auto) 1.57 (0.9-3.2) K/mm3 Mcdonough # (Auto) 0.5 (0.1-0.6) K/mm3 Eos # (Auto) 0.1 (0-0.3) K/mm3 Baso # (Auto) 0.0 (0.0-0.1) K/mm3 Abs Immat Gran (auto) 0.03 (0.00-0.031) K/mm3 Absolute Neuts (auto) 3.0 (1.3-6.7) K/mm3 Absolute Nucleated RBC 0.000 (0.0-0.012) K/mm3 Nucleated RBC % 0.0 (0.0-0.2) % PT 35.9 H (11.1-14.7) Seconds INR 3.7 APTT 68.3 H (22.3-36.8) Seconds Sodium 140 (137-145) mmol/L Potassium 4.1 (3.4-5.0) mmol/L Chloride 99 (98-107) mmol/L Carbon Dioxide 28 (22-30) mmol/L Anion Gap 13 H (4-12) mmol/L BUN 16 (9-20) mg/dL Creatinine 0.80 (0.7-1.3) mg/dL Estim Creat Clear Calc 74 ml/min Estimated GFR > 60 (59 - ) Glucose 141 H (65-110) mg/dL Calcium 10.0 (8.4-10.2) mg/dL Total Bilirubin 0.6 (0.2-1.3) mg/dL AST 42 (17-59) U/L ALT 21 (6-50) U/L Alkaline Phosphatase 90 (38-126) U/L Total Protein 9.1 H (6.3-8.2) g/dL Albumin 4.8 (3.5-5.1) g/dL Blood Type A Positive Antibody Screen Negative Imaging Data Radiologist's impression: Impressions Abdomen/Pelvis CT 12/11/24 07:52 IMPRESSION: Increased attenuation of the aerated stool within the rectosigmoid colon, consistent with patient's history without active extravasation visualized. Discharge Plan Discharge Clinical Impression: Rectal bleed Patient Disposition: Home Condition: Stable Instructions: Antibiotic Form, Hemorrhoids (ED), Rectal Bleeding (ED) Additional Instructions: Continue to have close outpatient follow-up with your primary care physician. If you have any worsening symptoms then please call or return to the emergency department. Patient Language: Indonesian Prescriptions: No Action clindamycin HCl [Cleocin HCl] 300 mg capsule See Rx Instructions .ROUTE .COMPLEX Qty: 14 0RF Rx Instructions: 450mg TID 5 days; received 1st dose emergency department 12/01 PM clindamycin HCl [Cleocin HCl] 150 mg capsule 150 mg PO Q8H 5 Days Qty: 14 0RF Rx Instructions: in combination with 300mg capsule for total of 450mg TID dosing; received first dose in ED 12/01 clindamycin HCl [Cleocin HCl] 300 mg capsule 300 mg PO TID 5 Days Qty: 14 0RF Rx Instructions: in combination with 150mg capsule for total of 450mg TID dosing; received first dose in ED 12/01 Follow-up/Referrals: PHYSICIAN NOT ON STAFF,NONSTAFF [Primary Care Provider] -
[2024-12-11 07:28] VITALS: BP 122/58; PULSE 63; RESP 20; O2SAT 98
[2024-12-11 08:30] VITALS: BP 120/58; PULSE 66; RESP 16; O2SAT 98
== END 2024-12-11 08:30 | disposition home or self-care (01) ==
PROVIDERS: Emergency Medicine; Emergency Provider Emergency Medicine
DX: K62.5 Hemorrhage of anus and rectum (principal); I25.10 Atherosclerotic heart disease of native coronary artery without angina pectoris; I10 Essential (primary) hypertension; E78.5 Hyperlipidemia, unspecified; E11.9 Type 2 diabetes mellitus without complications; E07.9 Disorder of thyroid, unspecified; K21.9 Gastro-esophageal reflux disease without esophagitis; G47.33 Obstructive sleep apnea (adult) (pediatric); Z86.718 Personal history of other venous thrombosis and embolism; Z85.46 Personal history of malignant neoplasm of prostate; Z92.3 Personal history of irradiation; Z90.2 Acquired absence of lung [part of]; Z95.1 Presence of aortocoronary bypass graft
CPT/HCPCS: 36415; 74177; 80053; 85025; 85610; 85730; 86850; 86900; 86901; 99284; Q9967

== ENCOUNTER 2024-12-21 11:30 | Outpatient (RCR) | payer MEDICARE, SELFPAY ==
[2024-10-29 10:40] LABS: INR 2.4; Prothrombin Time 25.8 Seconds (11.1-14.7)
[2024-11-05 10:21] LABS: INR 2.3; Prothrombin Time 24.5 Seconds (11.1-14.7)
[2024-11-11 13:29] LABS: INR 2.0; Prothrombin Time 22.8 Seconds (11.1-14.7)
[2024-11-30 09:08] LABS: INR 1.9; Prothrombin Time 21.2 Seconds (11.1-14.7)
[2024-12-21 12:28] LABS: INR 2.3; Prothrombin Time 24.5 Seconds (11.1-14.7)
== END 2025-01-27 23:59 | disposition home or self-care (01) ==
LOC: ANHLAB 11:30
DX: I48.0 Paroxysmal atrial fibrillation (principal)
CPT/HCPCS: 36415; 85610

== ENCOUNTER 2024-12-23 11:54 | Emergency (ER) | payer MEDICARE, BC, SELFPAY ==
[2024-12-23 12:00] VITALS: BP 136/54; PULSE 64; RESP 16; TEMP 36.1; O2SAT 100
--- NOTE | 2024-12-23 12:29 | ED.SKABFB ---
HPI - Skin/Abscess/Foreign Bdy General Chief complaint: Skin/Abscess/Foreign Body Stated complaint: re check cellulitis on right leg Time Seen by Provider: 12/23/24 12:10 Source: patient Mode of arrival: ambulatory Limitations: no limitations History of Present Illness HPI narrative: Edel is a 84-year-old male patient presenting to the clinic today with complaints of possible cellulitis to his right leg. He reports he recently finished clindamycin for cellulitis and that proved to symptoms however over the last few days he developed some redness and swelling to the right lateral upper leg. Clindamycin gave patient bad diarrhea as he already suffers from IBS. History blood clots in is taking Coumadin. He also has a blood clot filter in the right lower extremity. COVID and has been therapeutic at 2.5-3-has not missed any doses of his Coumadin. States it does not feel as though he has a blood clot. He has recently been traveling in the car from [place] to [place]. States that him and his have gotten out of the car multiple times to walk around during their trip. He denies any chest pain or shortness of breath. Denies any fevers, chills, body aches. Related Data Home Medications ?Medication ?Instructions ?Recorded ?Confirmed ?Last Taken ?Type ezetimibe 10 mg tablet mg 12/23/24 Unknown History gemfibrozil 600 mg tablet mg 12/23/24 Unknown History indapamide 1.25 mg tablet mg 12/23/24 Unknown History levothyroxine 50 mcg capsule mcg PO 12/23/24 Unknown History metformin 500 mg tablet mg 12/23/24 Unknown History metoprolol tartrate 25 mg tablet mg 12/23/24 Unknown History potassium chloride 20 mEq meq PO 12/23/24 Unknown History tablet,extended release(part/cryst) (Klor-Con M) tamsulosin 0.4 mg capsule mg PO 12/23/24 Unknown History warfarin 1 mg tablet mg 12/23/24 Unknown History warfarin 7.5 mg tablet mg 12/23/24 Unknown History Allergies Allergy/AdvReac Type Severity Reaction Status Date / Time adhesive Allergy Mild Rash Verified 12/23/24 11:57 cefuroxime Allergy Unknown Unknown Verified 12/23/24 11:57 ANIMAL DYE Allergy Unknown Unknown Uncoded 12/23/24 11:57 [facility] Past Medical History Medical History Wears hearing aid VTE (venous thromboembolism) Obstructive sleep apnea Prostate cancer CAD (coronary artery disease) Chronic anticoagulation coumadin Thyroid disease GERD (gastroesophageal reflux disease) Urinary retention Diabetes mellitus Hyperlipidemia Hypertension Surgical History Surgical History S/P lobectomy of lung left lower lobectomy May 2015 History of thyroid surgery 2014 History of carpal tunnel release 1998 History of coronary artery bypass graft 2012; 5 vessels Social History Social History Social History: Previously lived in [place]; now live in [place] but return frequently Smoking status: Never smoker Alcohol intake: never Living arrangements: with family Additional living arrangements comments: Occupation/Education: retired Additional occupation/education comments: Worked nearly 40 years Comments At the time of my signature, I reviewed and agree with the nursing past medical, surgical, social, and family history. There is no relevant family history pertinent to the patient complaint. Exam Narrative: General: Well-developed, well nourished, in no apparent distress Head: Normocephalic, atraumatic. Cardio: Regular rate and rhythm, s1 and s2 normal, no murmur appreciated. Resp: Clear to auscultation bilaterally, no rhonchi, rales, wheezing or rubs. Musculoskeletal: No deformity, grossly normal range of motion, muscle strength strong and equal, peripheral pulse strong, no cyanosis, normal gait and station bilateral lower extremity swelling with mild worsening on the right side 2+ pitting edema, area to the right upper lateral leg with mild redness-nontender to palpation, no erythema Course Course Emergency Course: Portions of this record may have been created with voice recognition software. Level of Care: Express Care Visit Vital Signs Vital signs: Vital Signs Temperature 36.1 C L 12/23/24 12:00 Pulse Rate 64 12/23/24 12:00 Respiratory Rate 16 12/23/24 12:00 Blood Pressure 136/54 L 12/23/24 12:00 Pulse Oximetry 100 12/23/24 12:00 Oxygen Delivery Room Air 12/23/24 12:00 Temperature 36.1 C L 12/23/24 12:00 Pulse Rate 64 12/23/24 12:00 Respiratory Rate 16 12/23/24 12:00 Blood Pressure 136/54 L 12/23/24 12:00 Pulse Oximetry 100 12/23/24 12:00 Oxygen Delivery Room Air 12/23/24 12:00 Vital signs reviewed MDM - Skin/Abscess/Foreign Bdy MDM Narrative Medical decision making narrative: At the time of visit patient is resting comfortably on the exam table. Patient appears to be nontoxic. Complaints of possible cellulitis to his right leg. He reports he recently finished clindamycin for cellulitis and that proved to symptoms however over the last few days he developed some redness and swelling to the right lateral upper leg. History blood clots in is taking Coumadin. He also has a blood clot filter in the right lower extremity. COVID and has been therapeutic at 2.5-3-has not missed any doses of his Coumadin. States it does not feel as though he has a blood clot. He has recently been traveling in the car from [place] to [place]. States that him and his have gotten out of the car multiple times to walk around during their trip. He denies any chest pain or shortness of breath. Denies any fevers, chills, body aches. On exam patient has bilateral lower extremity swelling with mild worsening on the right side 2+ pitting edema, area to the right upper lateral leg with mild redness-nontender to palpation, no erythema. Plan: Will cover for potential recurring cellulitis and give patient prescription of doxycycline. Patient has allergy to cefuroxime and has recently been on clindamycin. Clindamycin gave the patient very bad diarrhea and he does not wish to start that medication again. Supportive measures were discussed with the patient and they voiced understanding discharge instructions and agrees to treatment plan. Return precautions reviewed Differential Diagnosis Differential diagnosis: Likely abscess of skin or subcutaneous tissue, viral exanthem, dermatophytosis, urticaria, herpes zoster, allergic reaction to drug, cellulitis, eczema, insect bites, impetigo, contact dermatitis and other (DVT) Discharge Plan Discharge Clinical Impression: Cellulitis Qualifiers: Site of cellulitis: extremity Site of cellulitis of extremity: lower extremity Laterality: right Qualified Code(s): L03.115 - Cellulitis of right lower limb Patient Disposition: Home Condition: Stable Instructions: Antibiotic Form, Cellulitis (ED) Additional Instructions: Take doxycycline as prescribed Take probiotic daily either 2 hours before 2 hours after taking the antibiotic Increase fluids and stay well hydrated May take Tylenol as needed for pain or fever. Follow-up with your PCP in 3 days Patient Language: Azeri Prescriptions: New doxycycline monohydrate 100 mg capsule 100 mg PO BID 7 Days Qty: 14 0RF No Action metformin 500 mg tablet warfarin 7.5 mg tablet potassium chloride [Klor-Con M20] 20 mEq tablet,ER particles/crystals PO tamsulosin 0.4 mg capsule PO gemfibrozil 600 mg tablet indapamide 1.25 mg tablet warfarin 1 mg tablet ezetimibe 10 mg tablet metoprolol tartrate 25 mg tablet levothyroxine 50 mcg capsule PO Follow-up/Referrals: PHYSICIAN NOT ON STAFF,NONSTAFF [Primary Care Provider] - Time of Disposition: 12:32 Quality NIHSS Nursing Documentation ED NIHSS nursing documentation: reviewed/agree
== END 2024-12-23 12:41 | disposition home or self-care (01) ==
PROVIDERS: Emergency Provider Nurse Practitioner Family
DX: L03.115 Cellulitis of right lower limb (principal); I25.10 Atherosclerotic heart disease of native coronary artery without angina pectoris; E11.9 Type 2 diabetes mellitus without complications; Z79.84 Long term (current) use of oral hypoglycemic drugs; I10 Essential (primary) hypertension; E78.5 Hyperlipidemia, unspecified; K21.9 Gastro-esophageal reflux disease without esophagitis; Z85.46 Personal history of malignant neoplasm of prostate; Z90.2 Acquired absence of lung [part of]; Z95.1 Presence of aortocoronary bypass graft; Z79.01 Long term (current) use of anticoagulants; Z86.718 Personal history of other venous thrombosis and embolism
CPT/HCPCS: 99213; G0463

== ENCOUNTER 2024-12-31 10:52 | Emergency (ER) | payer MEDICARE, BC, SELFPAY ==
[2024-12-31 11:00] VITALS: BP 137/54; PULSE 73; RESP 16; TEMP 36.4; O2SAT 100
--- NOTE | 2024-12-31 11:08 | ED.SKABFB ---
HPI - Skin/Abscess/Foreign Bdy General Chief complaint: Skin/Abscess/Foreign Body Stated complaint: Skin Problem Time Seen by Provider: 12/31/24 11:08 Source: patient Mode of arrival: ambulatory Limitations: no limitations History of Present Illness HPI narrative: 84-year-old male presents with complaint of cellulitis. Patient has been seen at [facility] 2 other times for same problem. Patient's primary care doctor is in [place], will not be able to see him until January. Patient denies pain, reports continued redness and warmth. Patient took clindamycin and then doxycycline. Is feeling well today. states she thinks still has infection. Ambulatory with steady gait. Neurovascularly intact. All systems reviewed and negative except as noted. Related Data Home Medications ?Medication ?Instructions ?Recorded ?Confirmed ?Last Taken ?Type gemfibrozil 600 mg tablet mg 12/23/24 Unknown History indapamide 1.25 mg tablet mg 12/23/24 Unknown History levothyroxine 50 mcg capsule mcg PO 12/23/24 Unknown History metformin 500 mg tablet mg 12/23/24 Unknown History metoprolol tartrate 25 mg tablet mg 12/23/24 Unknown History potassium chloride 20 mEq meq PO 12/23/24 Unknown History tablet,extended release(part/cryst) (Klor-Con M) tamsulosin 0.4 mg capsule mg PO 12/23/24 Unknown History warfarin 7.5 mg tablet mg 12/23/24 Unknown History hydrocodone 10 mg-acetaminophen tablet 12/31/24 Unknown History 325 mg tablet levothyroxine 50 mcg tablet mcg 12/31/24 Unknown History pantoprazole 40 mg tablet,delayed mg PO 12/31/24 Unknown History release Allergies Allergy/AdvReac Type Severity Reaction Status Date / Time adhesive Allergy Mild Rash Verified 12/31/24 10:59 cefuroxime Allergy Unknown Unknown Verified 12/31/24 10:59 [facility] Past Medical History Medical History Wears hearing aid VTE (venous thromboembolism) Obstructive sleep apnea Prostate cancer CAD (coronary artery disease) Chronic anticoagulation coumadin Thyroid disease GERD (gastroesophageal reflux disease) Urinary retention Diabetes mellitus Hyperlipidemia Hypertension Surgical History Surgical History S/P lobectomy of lung left lower lobectomy May 2015 History of thyroid surgery 2014 History of carpal tunnel release 1998 History of coronary artery bypass graft 2013; 5 vessels Social History Social History Social History: Previously lived in [place]; now live in [place] but return frequently Smoking status: Never smoker Alcohol intake: never Living arrangements: with family Additional living arrangements comments: Occupation/Education: retired Additional occupation/education comments: Worked nearly 40 years Comments At time of signature, agree with nursing past medical, surgical, social and family history. There is no relevant family history pertinent to the presenting complaint. Exam Narrative: GENERAL: This is a well-nourished, well-developed patient, in no apparent distress. HEAD: normocephalic, atraumatic. EYES: PERRL. Sclera clear/white. Vision is grossly intact. EARS: External ears normal NOSE: External nose normal NECK: Neck supple, non-tender without lymphadenopathy, masses or thyromegaly. CARDIOVASCULAR: Regular rate and rhythm without murmurs, gallops, or rubs. RESPIRATORY: Clear to auscultation. Breath sounds equal bilaterally. No wheezes, rales, or rhonchi. SKIN: warm, Dry, intact with no suspicious lesions or rash, good texture and turgor. NEURO: awake, alert, and oriented to person, place and time. There were no obvious focal neurologic abnormalities. EXTREMITIES: Venous stasis, stasis dermatitis to right lower extremity anterior aspect. Mild warmth and erythema, nontender. No fluctuance concerning for abscess. No draining wounds. Course Course Level of Care: Express Care Visit Vital Signs Vital signs: Vital Signs Temperature 36.4 C 12/31/24 11:00 Pulse Rate 73 12/31/24 11:00 Respiratory Rate 16 12/31/24 11:00 Blood Pressure 137/54 L 12/31/24 11:00 Pulse Oximetry 100 12/31/24 11:00 Oxygen Delivery Room Air 12/31/24 11:00 Temperature 36.4 C 12/31/24 11:00 Pulse Rate 73 12/31/24 11:00 Respiratory Rate 16 12/31/24 11:00 Blood Pressure 137/54 L 12/31/24 11:00 Pulse Oximetry 100 12/31/24 11:00 Oxygen Delivery Room Air 12/31/24 11:00 Reviewed MDM - Skin/Abscess/Foreign Bdy MDM Narrative Medical decision making narrative: stasis dermatitis versus cellulitis. Educated patient regarding multiple antibiotics, risk for C diff. patient concerned he still has infection, would like another antibiotic today. Recommend he go to the ER if he has continued concerns for cellulitis as he does not have a primary care physician in the area. Differential Diagnosis Differential diagnosis: Likely abscess of skin or subcutaneous tissue, cellulitis and contact dermatitis Discharge Plan Discharge Clinical Impression: Cellulitis of right anterior lower leg Patient Disposition: Home Condition: Stable Instructions: Antibiotic Form, Cellulitis (ED) Additional Instructions: Take antibiotic as prescribed until gone. Elevate when at rest. For any worsening of symptoms or if not improving go to the ER. Patient Language: Lithuanian Prescriptions: New cephalexin 500 mg capsule 500 mg PO QID 7 Days Qty: 28 0RF No Action metformin 500 mg tablet warfarin 7.5 mg tablet potassium chloride [Klor-Con M20] 20 mEq tablet,ER particles/crystals PO tamsulosin 0.4 mg capsule PO gemfibrozil 600 mg tablet indapamide 1.25 mg tablet metoprolol tartrate 25 mg tablet levothyroxine 50 mcg capsule PO levothyroxine 50 mcg tablet pantoprazole 40 mg tablet,delayed release (DR/EC) PO hydrocodone-acetaminophen 10-325 mg tablet Follow-up/Referrals: PHYSICIAN NOT ON STAFF,NONSTAFF [Primary Care Provider] Time of Disposition: 11:33
== END 2024-12-31 11:35 | disposition home or self-care (01) ==
PROVIDERS: Emergency Provider Nurse Practitioner Family
DX: L03.115 Cellulitis of right lower limb (principal); I25.10 Atherosclerotic heart disease of native coronary artery without angina pectoris; E11.9 Type 2 diabetes mellitus without complications; Z79.84 Long term (current) use of oral hypoglycemic drugs; I10 Essential (primary) hypertension; E78.5 Hyperlipidemia, unspecified; K21.9 Gastro-esophageal reflux disease without esophagitis; Z79.01 Long term (current) use of anticoagulants; Z86.718 Personal history of other venous thrombosis and embolism; Z85.46 Personal history of malignant neoplasm of prostate; Z90.2 Acquired absence of lung [part of]; Z95.1 Presence of aortocoronary bypass graft
CPT/HCPCS: 99213; G0463